=== PATIENT | male | born 1940 | race Caucasian/White ===

== ENCOUNTER → 2016-06-03 | Outpatient (CLI) | payer MEDICARE, BC ==
--- NOTE | 2016-06-03 11:36 | US ---
EXAMINATION TYPE: US venous doppler duplex LE LT DATE OF EXAM: 06/03/2016 10:07 AM COMPARISON: US 11/13/2015 CLINICAL HISTORY: US. History of DVT in the left leg, currently on blood thinners. Swelling is still present, but going down per patient. SIDE PERFORMED: Left VESSELS IMAGED: External Iliac Vein (EIV) Common Femoral Vein Deep Femoral Vein Greater Saphenous Vein * Femoral Vein Popliteal Vein Small Saphenous Vein * Proximal Calf Veins (* superficial vessels) Left Leg: Positive for DVT IMPRESSION: Left leg appears to have DVT due to only partial compression of the femoral vein high to popliteal low. Spoke to Kathy around 11:10 06/03/2016 about positive exam and she said to go ahead and send him home.
== END | disposition home or self-care (01) ==
LOC: RADUSWWP 10:05
PROVIDERS: ATTEND Family Medicine
DX: I80.292 Phlebitis and thrombophlebitis of other deep vessels of left lower extremity (principal)

== ENCOUNTER 2016-10-08 15:13 | Inpatient (IN) | payer MEDICARE, BC ==
[2016-10-08] MEDS ORDERED: NALOXONE 0.4 MG/ML 1 ML VIAL IV PRN (17:23)
[2016-10-08] MEDS ORDERED: ALBUTEROL NEBULIZED 2.5 MG/3 ML INHALATION PRN (17:30)
[2016-10-08] MEDS ORDERED: SODIUM CHLORIDE 0.9% 1,000 ML IV SCH (17:30)
[2016-10-08] MEDS ORDERED: WARFARIN 7.5 MG TAB PO SCH (18:00)
[2016-10-08] MEDS: CARVEDILOL 6.25 MG TAB PO SCH (18:03)
[2016-10-08 18:16] LABS: INR 4.5 (<1.1); Prothrombin Time 44.6 sec (9.0-12.0)
[2016-10-08 18:22] LABS: ALT 59 U/L (21-72); AST 46 U/L (17-59); Alkaline Phosphatase 33 U/L (38-126); Anion Gap 10 mmol/L; Blood Urea Nitrogen 45 mg/dL (9-20); Carbon Dioxide 18 mmol/L (22-30); Chloride 107 mmol/L (98-107); Glucose 97 mg/dL (74-99); Non-African American GFR(MDRD) 51 (>60 ml/min/1.73 sqM); Potassium 4.6 mmol/L (3.5-5.1); Sodium 135 mmol/L (137-145); Total Bilirubin 1.2 mg/dL (0.2-1.3)
[2016-10-08 18:25] LABS: CH 31.3; CHCM 34.6; HCT 54.9 % (39.0-53.0); HDW 2.41; HGB 18.2 gm/dL (13.0-17.5); MCH 30.3 pg (25.0-35.0); MCHC 33.2 g/dL (31.0-37.0); MCV 91.1 fL (80.0-100.0); Mean Platelet Volume 6.8; RBC 6.03 m/uL (4.30-5.90); RDW 15.3 % (11.5-15.5); WBC (Perox) 35.58
[2016-10-08 18:27] LABS: WBC 40.5 k/uL (3.8-10.6)
[2016-10-08] MEDS ORDERED: TAMSULOSIN 0.4 MG CAP.ER.24H PO SCH (19:00)
[2016-10-08 19:27] LABS: Add Differential Manual Differential
[2016-10-08] MEDS: MONTELUKAST 10 MG TAB PO SCH (19:40)
[2016-10-08 19:45] LABS: Nucleated Red Blood Cells 0 /100 WBC (0-0); Total Cells Counted 100
[2016-10-08 19:47] LABS: Manual Review Performed; RBC Morphology Normal
[2016-10-08] MEDS: AZELASTINE 137MCG/SPRAY EA NOSTRIL SCH (20:57)
[2016-10-08] MEDS ORDERED: ALPRAZolam 0.25 MG TAB PO SCH (21:00)
[2016-10-08] MEDS ORDERED: LORATADINE 10 MG TAB PO SCH (21:00)
[2016-10-08] MEDS ORDERED: METHYL SALICYLATE/MENTHOL CREAM 5 OZ TOPICAL SCH (22:30)
[2016-10-08] MEDS: IBUPROFEN 400 MG TAB PO SCH (22:45)
[2016-10-08 23:14] LABS: Appearance,Urine Clear (Clear); Bilirubin,Urine Negative (Negative); Glucose,Urine (UA) Negative (Negative); Ketones,Urine Negative (Negative); Leukocyte Esterase,Urine Negative (Negative); Nitrite,Urine Negative (Negative); PH, Urine 5.5 (5.0-8.0); Protein,Urine Negative (Negative); Specific Gravity,Urine 1.021 (1.001-1.035); UA Billing (MACRO vs. MICRO) CHEM; Urobilinogen,Urine <2.0 mg/dL (<2.0)
[2016-10-09 07:41] VITALS: BP 130/64; PULSE 87; RESP 16; TEMP 97.8
[2016-10-09] MEDS: IBUPROFEN 400 MG TAB PO SCH (08:20)
[2016-10-09] MEDS: AZELASTINE 137MCG/SPRAY EA NOSTRIL SCH (08:21)
[2016-10-09] MEDS: MONTELUKAST 10 MG TAB PO SCH (08:21)
[2016-10-09] MEDS: CARVEDILOL 6.25 MG TAB PO SCH (08:21)
--- NOTE | 2016-10-09 08:34 | XR ---
EXAMINATION TYPE: XR chest 2V DATE OF EXAM: 10/09/2016 6:59 AM COMPARISON: Prior chest x-ray November 13, 2015. Prior chest CT June 29, 2013 HISTORY: Leukocytosis. TECHNIQUE: Frontal and lateral views of the chest are obtained. FINDINGS: There is chronic parenchymal change without suspicious new focal air space opacity, pleura l effusion, or pneumothorax seen. The cardiac silhouette size is stable and upper limits of normal w ith atherosclerotic and ectatic thoracic aorta redemonstrated. The osseous structures are intact. IMPRESSION: No suspicious acute pulmonary process. No significant change from prior studies.
[2016-10-09] MEDS ORDERED: LISINOPRIL 10 MG TAB PO SCH (09:00)
[2016-10-09] MEDS ORDERED: FUROSEMIDE 40 MG TAB PO SCH (09:00)
[2016-10-09 09:35] LABS: INR 3.9 (<1.1)
[2016-10-09 09:53] LABS: ALT 47 U/L (21-72); AST 62 U/L (17-59); Alkaline Phosphatase <20 U/L (38-126); Anion Gap 9 mmol/L; Blood Urea Nitrogen 39 mg/dL (9-20); Calcium 8.4 mg/dL (8.4-10.2); Carbon Dioxide 17 mmol/L (22-30); Chloride 110 mmol/L (98-107); Glucose 79 mg/dL (74-99); Non-African American GFR(MDRD) >60 (>60 ml/min/1.73 sqM); Sodium 136 mmol/L (137-145); Total Bilirubin 2.2 mg/dL (0.2-1.3); Total Protein 6.1 g/dL (6.3-8.2)
[2016-10-09 09:54] LABS: Potassium 5.4 mmol/L (3.5-5.1)
[2016-10-09 10:01] LABS: CH 31.4; CHCM 33.6; HCT 54.1 % (39.0-53.0); HDW 2.29; HGB 17.8 gm/dL (13.0-17.5); MCH 31.1 pg (25.0-35.0); MCV 94.2 fL (80.0-100.0); Mean Platelet Volume 6.7; RBC 5.74 m/uL (4.30-5.90); RDW 15.5 % (11.5-15.5); WBC (Perox) 30.75
--- NOTE | 2016-10-09 11:21 | P.DS ---
Providers Date of admission: 10/08/16 15:15 Expected date of discharge: 10/09/16 Attending physician: Saedi Tapia Consults: 10/08/16 17:26 Consult Physician Urgent Consulting Provider: Ryder Hurst Consult Reason/Comments: leucocytosis Do you want consulting provider notified?: Yes Primary care physician: [facility] Course: 76-year-old male was a direct admission from Dr. Tapia's office the patient is being seen and noted to have an elevated white count the white count on admission was 40. Repeat white count 33 on October 09 patient states that about 7- 10 days ago he was given a steroid shot. Subsequently the patient was admitted and seen by Dr. Hurst who recommended the patient be discharged and he would see the patient in the outpatient setting. There was no cough fever or chills. Patient's chest x-ray showed no acute pulmonary process patient has a history of an irregular heart rhythm atrial fibrillation is on anticoagulation. INR on admission was 4.5. Coumadin was held repeat INR on the showed it to be 3.9. Patient was felt to be medically stable and appropriate proceed with a discharge to home. Patient was instructed to not resume Coumadin until seen in Dr. Tapia's office this coming Friday Have a pro time and INR drawn at Dr. Tapia's office on Appointment would be made for him to follow-up with Dr. Hurst in the office next week Impression discharge diagnoses Present on admission Coumadin coagulopathy INR 4.5 atrial fibrillation chronic persistent controlled ventricular response Present on admission leukocytosis The above dictated assessment and findings were discussed with dr tapia. Impression and the plan of care have been dictated as directed. Sarika Owusu nurse practitioner acting as a scribe for dr tapia Plan - Discharge Summary Discharge Medication List ALPRAZolam [Xanax] 0.25 mg PO HS 04/12/14 [History] Albuterol Sulfate [Proair Hfa] 2 puff INHALATION RT-Q6H PRN 04/12/14 [History] Azelastine HCl [Astepro] 1 spray EA NOSTRIL BID 04/12/14 [History] Fexofenadine HCl [Radha Allergy] 180 mg PO HS 04/12/14 [History] Furosemide [Lasix] 40 mg PO DAILY 04/12/14 [History] Lisinopril [Zestril] 10 mg PO DAILY 04/12/14 [History] Montelukast [Singulair] 10 mg PO BID 04/12/14 [History] Tamsulosin [Flomax] 0.4 mg PO DAILY@1900 04/12/14 [History] Spironolactone [Aldactone] 25 mg PO DAILY@1700 04/24/15 [History] Carvedilol [Coreg] 6.25 mg PO BID 11/13/15 [History] Ibuprofen [Advil] 400 mg PO TID@0800,1500,2200 11/13/15 [History] Warfarin [Coumadin] 3.75 mg PO DIRECTED 11/13/15 [History] Warfarin [Coumadin] 7.5 mg PO DIRECTED 11/13/15 [History] Menthol [Biofreeze] 1 applic TOPICAL DAILY@2230 10/08/16 [History] Follow up Appointment(s)/Referral(s): Saeid Tapia MD [Primary Care Provider] - 10/11/16 Ryder Hurst MD [STAFF PHYSICIAN] - 1 Week Activity/Diet/Wound Care/Special Instructions: Do not restart the Coumadin until seen in Dr. Tapia's office this FridayOctober 11 To have a pro time and INR lab draw on the 10 of October Discharge Disposition: HOME SELF-CARE
[2016-10-09 11:22] LABS: Add Differential Manual Differential
[2016-10-09 12:04] LABS: Nucleated Red Blood Cells 0 /100 WBC (0-0); Total Cells Counted 200
[2016-10-09] MEDS ORDERED: SPIRONOLACTONE 25 MG TAB PO SCH (17:00)
--- NOTE | 2016-10-09 17:08 | P.CONS ---
History of Present Illness - Reason for Consult Consult date: 10/09/16 leukocytosis, ALC elevated Requesting physician: Saeid Yang - Chief Complaint abnormal WBC - History of Present Illness Mr. Steele is a very pleasant male pt of Dr. Yang who was sent to [facility] ER when he was found to have a significantly elevated WBC/ALC and mildly elevate Hgb/Hct on routine lab work. Pt denies any history of elevated blood counts, he denies fevers, sweats, he was treated with a steroid and antibiotic injection for URI about 1-2 weeks ago, he denies any other recent illnesses, no dysphagia, changes in appetite, wt. loss, chest pain, palpitations, indigestion , nausea, vomiting, changes in bowel or bladder habits, no acute changes in energy levels or unrealistic fatigue. He feels well. Review of Systems All systems: negative Constitutional: Reports as per HPI Past Medical History Past Medical History: Atrial Fibrillation, Asthma, Heart Failure, Deep Vein Thrombosis (DVT), Hearing Disorder / Deafness, Hypertension, Myocardial Infarction (SD), Osteoarthritis (OA), Prostate Disorder Additional Past Medical History / Comment(s): cholecystitis. Aortic regurgitation, cardiomyopathy, per old medical record stress test showed inferior wall SD, BPH, hypoglycemia, pt states PCP has told him he does not have COPD, arthiritis, chronic low back pain, [place] bilaterally, sinus problems, hayfever. "cervical stenosis", gout lt foot Last Myocardial Infarction Date:: UNKNOWN History of Any Multi-Drug Resistant Organisms: None Reported Past Surgical History: Cholecystectomy, Heart Catheterization, Joint Replacement , Tonsillectomy Additional Past Surgical History / Comment(s): LEFT KNEE-TOTAL, cataract removal bilaterally, colonoscopies-normal, back injections with disc disolvement , BRETT. tooth extraction Past Anesthesia/Blood Transfusion Reactions: No Reported Reaction Past Psychological History: Anxiety, Depression Additional Psychological History / Comment(s): Pt states he is on medication for anxiety and to help sleep at night,ITS working well for him.DENIES HAVING ANY DEPRESSION at time of admit but states occ has some mild depression. He resides with his spouse skip in a single level home that has total of 2 steps to enter home. He is independent. He uses no assistive device. He drives. sereved in the [employer] when younger. 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 He rarely has an alcoholic beverage. Past Drug Use History: None Reported - Past Family History Daughter(s) Family Medical History: Cancer Father Family Medical History: Neurologic Disorder Additional Family Medical History / Comment(s): Father had parkinson's disease. He in his 70's. Mother Family Medical History: Asthma, Myocardial Infarction (SD), Rheumatoid Arthritis (RA) Additional Family Medical History / Comment(s): Mother of a SD in her 70' s. She also had osteoporosis. Medications and Allergies Home Medications Medication Instructions Recorded Confirmed Type ALPRAZolam [Xanax] 0.25 mg PO HS 04/12/14 10/08/16 History Albuterol Sulfate [Proair Hfa] 2 puff INHALATION RT-Q6H PRN 04/12/14 10/08/16 History Azelastine HCl [Astepro] 1 spray EA NOSTRIL BID 04/12/14 10/08/16 History Fexofenadine HCl [Radha Allergy] 180 mg PO HS 04/12/14 10/08/16 History Furosemide [Lasix] 40 mg PO DAILY 04/12/14 10/08/16 History Lisinopril [Zestril] 10 mg PO DAILY 04/12/14 10/08/16 History Montelukast [Singulair] 10 mg PO BID 04/12/14 10/08/16 History Tamsulosin [Flomax] 0.4 mg PO DAILY@1900 04/12/14 10/08/16 History Spironolactone [Aldactone] 25 mg PO DAILY@1700 04/24/15 10/08/16 History Carvedilol [Coreg] 6.25 mg PO BID 11/13/15 10/08/16 History Ibuprofen [Advil] 400 mg PO TID@0800,1500,2200 11/13/15 10/08/16 History Warfarin [Coumadin] 3.75 mg PO DIRECTED 11/13/15 10/08/16 History Warfarin [Coumadin] 7.5 mg PO DIRECTED 11/13/15 10/08/16 History Menthol [Biofreeze] 1 applic TOPICAL DAILY@2230 10/08/16 10/08/16 History Allergies Allergy/AdvReac Type Severity Reaction Status Date / Time diazepam [From Valium] AdvReac Unknown Verified 11/13/15 15:37 Physical Exam Vitals: Vital Signs Temp Pulse Resp BP Pulse Ox 10/09/16 08:00 87 16 10/09/16 07:00 97.8 F 87 16 130/64 98 10/09/16 00:00 100 18 10/08/16 22:40 98.2 F 100 18 125/66 96 10/08/16 16:41 97.2 F L 95 16 130/75 97 10/08/16 16:23 16 Intake and Output 10/08/16 10/09/16 10/09/16 22:59 06:59 14:59 Intake Total 400 450 Balance 400 450 Intake: Oral 400 450 Other: Voiding Method Toilet Toilet Toilet # Voids 1 Weight 98.883 kg - Constitutional General appearance: cooperative, no acute distress, obese - EENT Eyes: anicteric sclerae, EOMI, PERRLA, normal appearance ENT: hearing grossly normal, normal oropharynx - Neck Neck: no lymphadenopathy - Respiratory Respiratory: bilateral: CTA - Cardiovascular Heart sounds: normal: S1, S2 leg Peripheral Edema: bilateral: None - Gastrointestinal General gastrointestinal: no absent bowel sounds, no decreased bowel sounds, no distended, no hepatomegaly, no hyperactive bowel sounds, normal bowel sounds, no organomegaly, no rigid, no scaphoid, soft, no splenomegaly, no tenderness, no umbilical hernia, no ventral hernia - Integumentary Integumentary: normal - Neurologic Neurologic: CNII-XII intact - Musculoskeletal Musculoskeletal: strength equal bilaterally - Psychiatric Psychiatric: A&O x's 3, appropriate affect, intact judgment & insight Results CBC & Chem 7: 10/09/16 08:00 10/09/16 08:00 Labs: Abnormal Lab Results - Last 24 Hours (Table) 10/08/16 10/08/16 10/08/16 Range/Units 17:50 17:50 17:50 WBC 40.5 H* (3.8-10.6) k/uL RBC 6.03 H (4.30-5.90) m/uL Hgb 18.2 H (13.0-17.5) gm/dL Hct 54.9 H (39.0-53.0) % Plt Count (150-450) k/uL Lymphocytes # (Manual) 32.8 H (1.0-4.8) k/uL Monocytes # (Manual) 1.2 H (0-1.0) k/uL PT 44.6 H (9.0-12.0) sec Sodium 135 L (137-145) mmol/L Potassium (3.5-5.1) mmol/L Chloride (98-107) mmol/L Carbon Dioxide 18 L (22-30) mmol/L BUN 45 H (9-20) mg/dL Creatinine 1.35 H (0.66-1.25) mg/dL Total Bilirubin (0.2-1.3) mg/dL AST (17-59) U/L Alkaline Phosphatase 33 L (38-126) U/L Total Protein 6.0 L (6.3-8.2) g/dL Albumin (3.5-5.0) g/dL 10/09/16 10/09/16 10/09/16 Range/Units 08:00 08:00 08:00 WBC 33.0 H* (3.8-10.6) k/uL RBC (4.30-5.90) m/uL Hgb 17.8 H (13.0-17.5) gm/dL Hct 54.1 H (39.0-53.0) % Plt Count 143 L (150-450) k/uL Lymphocytes # (Manual) 27.6 H (1.0-4.8) k/uL Monocytes # (Manual) (0-1.0) k/uL PT 38.0 H (9.0-12.0) sec Sodium 136 L (137-145) mmol/L Potassium 5.4 H (3.5-5.1) mmol/L Chloride 110 H (98-107) mmol/L Carbon Dioxide 17 L (22-30) mmol/L BUN 39 H (9-20) mg/dL Creatinine (0.66-1.25) mg/dL Total Bilirubin 2.2 H (0.2-1.3) mg/dL AST 62 H (17-59) U/L Alkaline Phosphatase <20 L (38-126) U/L Total Protein 6.1 L (6.3-8.2) g/dL Albumin 3.4 L (3.5-5.0) g/dL Microbiology - Last 24 Hours (Table) 10/08/16 22:45 Urine Culture - Preliminary Urine,Clean Catch Chest x-ray: report reviewed Assessment and Plan (1) Lymphocytosis Status: Acute (2) Leukocytosis Status: Acute Plan: Flow cytometry labs have been requested for evaluation, findings suggestive of a chronic lymphocytic leukemia, no evidence at this time to suggest acute condition, all other pt other labs are WNL, pt is asymptomatic. Once requested labs have been drawn pt is ok from Hem/Onc standpoint to be discharged to home. Office will contact pt with follow up appt once labs have returned. Case discussed with Attending Physician. Polycythemia will be worked up in office if persistent.
[2016-10-09] MEDS ORDERED: WARFARIN 7.5 MG TAB PO SCH (18:00)
[2016-10-10] MEDS ORDERED: WARFARIN 7.5 MG TAB PO SCH (18:00)
== END 2016-10-09 11:52 | disposition home or self-care (01) | DRG 815 ==
LOC: 5ONC 15:15
PROVIDERS: ADMIT Family Medicine; ATTEND Family Medicine
DX: D72.820 Lymphocytosis (symptomatic) (principal); I42.9 Cardiomyopathy, unspecified; I11.0 Hypertensive heart disease with heart failure; I50.9 Heart failure, unspecified; I35.1 Nonrheumatic aortic (valve) insufficiency; I25.2 Old myocardial infarction; I48.2 Chronic atrial fibrillation; J45.909 Unspecified asthma, uncomplicated; M10.9 Gout, unspecified; N40.0 Benign prostatic hyperplasia without lower urinary tract symptoms; R79.1 Abnormal coagulation profile; T45.515A Adverse effect of anticoagulants, initial encounter; F32.9 Major depressive disorder, single episode, unspecified; F41.9 Anxiety disorder, unspecified; M19.90 Unspecified osteoarthritis, unspecified site; M48.02 Spinal stenosis, cervical region; H91.93 Unspecified hearing loss, bilateral; G89.29 Other chronic pain; M54.5 Low back pain; Z79.01 Long term (current) use of anticoagulants; Z79.899 Other long term (current) drug therapy; Z87.891 Personal history of nicotine dependence; Z96.652 Presence of left artificial knee joint; Z82.49 Family history of ischemic heart disease and other diseases of the circulatory system
CPT/HCPCS: 71020; 80053; 81003; 85025; 85610; 87040; 87086; 88184; 88185

== ENCOUNTER → 2018-09-22 | Outpatient (CLI) | payer MEDICARE, BC ==
--- NOTE | 2018-09-24 03:59 | CT ---
EXAMINATION TYPE: CT abdomen pelvis w con DATE OF EXAM: 09/22/2018 COMPARISON: NONE HISTORY: 78-year-old male with abdominal cramping x 2 weeks. TECHNIQUE: Contiguous axial scanning of the abdomen and pelvis following administration of 100 ml Iso bhavani 300 IV contrast. Delayed images through the kidneys and coronal/sagittal reconstructions perform ed. CT DLP: 1439.5 mGycm Automated exposure control for dose reduction was used. FINDINGS: Heart borderline in size with trace anterior pericardial fluid. Tortuous descending thoracic aorta with mild aneurysm of the lower portion at 3.3 cm. Mild fusiform e ctasia infrarenal abdominal aorta at 2.6 cm with scattered mild atherosclerotic calcifications throug hout the aortoiliac system. Ectatic right and left common iliac arteries measuring up to 1.8 cm. Ther e is a common trunk of the celiac axis and SMA. Tiny hiatal hernia. 1.7 x 0.9 cm nodularity at the medial left base suspected pleural parenchymal scarring but should be reassessed at follow-up. Segments 6 and 7 of the posterior right liver lobe appear somewhat small possibly due to congenital v ariation. No focal liver lesion or biliary ductal dilatation. Portal venous system is patent. Gallbladder not identified, likely surgically absent. Adrenal glands, spleen, and pancreas appear within normal limits. A few scattered tiny subcentimeter hypodensities within both kidneys are too small for accurate CT ch aracterization, likely cysts. There is a 5.5 cm cyst laterally in the left kidney. Symmetric uptake a nd excretion of contrast from both kidneys. No dilated small bowel, free fluid, or free air. No mesenteric or retroperitoneal lymphadenopathy. Normal appendix. Mild stool burden. Sigmoid diverticulosis with mild pericolonic inflammatory fat str anding along the proximal sigmoid and adjacent localized extraluminal air collection measuring 5.4 x 1.9 cm. Prostate gland measures 7.7 cm wide. No abnormal fluid collection in the pelvis or pelvic lymphadenop athy. Bones: Mild degenerative changes at the hips. Moderately advanced degenerative disc disease and facet arthropathy in the lumbar spine. IMPRESSION: 1. SIGMOID DIVERTICULOSIS WITH LOCALIZED ACUTE DIVERTICULITIS ALONG THE PROXIMAL SIGMOID. THE ACUTE D IVERTICULITIS IS COMPLICATED BY A LOCALIZED PERFORATION AND A 5.4 X 1.9 CM ADJACENT EXTRALUMINAL FREE AIR POCKET. NO ABSCESS FORMATION OR FREE FLUID AT THIS TIME. 2. PROSTATOMEGALY (7.7 CM WIDE). CORRELATE WITH PATIENT'S SYMPTOMS, PSA VALUES, AND PHYSICAL EXAM FIN DINGS. 3. 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 THE RIGHT AND LEFT COMMO N ILIAC ARTERIES ARE ALSO ECTATIC AT 1.8 CM EACH. 4. 1.7 X 0.9 CM NODULARITY AT THE MEDIAL LEFT BASE SUSPECTED TO REPRESENT PLEURAL-PARENCHYMAL SCARRIN G. THREE-MONTH FOLLOW-UP CONTRAST ENHANCED CT CHEST TO REASSESS. A [place] critical message alert has been initiated for Saeid Yang MD via the [employer] Critical Results System on 09/24/2018 3:57 AM. This message alert has been sent to Saeid Yang MD v ia the preferences provided by the clinician for the receipt of Radiology Critical Findings. Message ID [id number].
== END | disposition home or self-care (01) ==
LOC: RADCTMAIN 13:32
PROVIDERS: ATTEND Family Medicine
DX: K57.30 Diverticulosis of large intestine without perforation or abscess without bleeding (principal); K57.32 Diverticulitis of large intestine without perforation or abscess without bleeding; N40.0 Benign prostatic hyperplasia without lower urinary tract symptoms; I71.2 Thoracic aortic aneurysm, without rupture; I77.1 Stricture of artery; I77.89 Other specified disorders of arteries and arterioles
CPT/HCPCS: 82565; 84520; 74177; 36415; Q9967 ×2

== ENCOUNTER → 2020-02-02 | Outpatient (CLI) | payer MEDICARE, BC ==
--- NOTE | 2020-02-02 16:02 | CT ---
EXAMINATION TYPE: CT shoulder LT wo con DATE OF EXAM: 02/02/2020 COMPARISON: None HISTORY: left shoulder pain. no injury. CT DLP: 518.3 mGycm Automated exposure control for dose reduction was used. FINDINGS: There is complete loss of joint space of the glenohumeral joint. Likely is cartilaginous loss. Cystic changes involving the glenoid likely in the basis of a degenerative geode rather than bone cyst. No erosive changes. Mild hypertrophic change of the AC joint. There is no evidence of acute fracture or dislocation. Visu alized osseous structures intact. Soft tissue tissue windows demonstrate no definite soft tissue abnormality. IMPRESSION: 1. SEVERE GLENOHUMERAL JOINT ARTHROPATHY WITH COMPLETE LOSS OF JOINT SPACE 2. INCIDENTAL NOTE IS MADE OF A SUBPLEURAL PULMONARY NODULE LEFT UPPER LOBE MEASURING 4 MM TOO SMALL TO CHARACTERIZE. MULTIPLE ADDITIONAL 2 MM NODULES ALSO SEEN WITHIN THE LEFT LUNG WELL A CALCIFI ED GRANULOMA. CONSIDER DEDICATED CT SCAN OF THE CHEST.
== END | disposition home or self-care (01) ==
LOC: RADCTMAIN 15:10
PROVIDERS: ATTEND Family Medicine
DX: M12.812 Other specific arthropathies, not elsewhere classified, left shoulder (principal)

== ENCOUNTER → 2021-05-15 | Outpatient (CLI) | payer MEDICARE, BC ==
--- NOTE | 2021-05-16 10:02 | US ---
EXAMINATION TYPE: US kidneys/renal and bladder DATE OF EXAM: 05/15/2021 COMPARISON: NONE CLINICAL HISTORY: 81-year-old male R94.4 Abnormal Kidney Function Study. Sonography note: Elderly male with known CKD, and cysts on CT Technique: Multiple sonographic images of the kidneys and bladder are obtained. FINDINGS: EXAM MEASUREMENTS: Right Kidney: 12.8 x 4.8 x 6.7cm Left Kidney: 9.2 x 5.0 x 5.2cm Renal cortical thinning suggesting chronic medical renal disease. Right Kidney: No masses or hydronephrosis seen Left Kidney: 4.2cm mid pole cyst. No hydronephrosis. Bladder: wnl Bilateral Jets seen: Only the left IMPRESSION: Bilateral chronic medical renal disease. No hydronephrosis. A benign 4.2 cm left renal cyst.
== END | disposition home or self-care (01) ==
LOC: RADUSWWP 15:19
PROVIDERS: ATTEND Internal Medicine Hematology & Oncology
DX: R94.4 Abnormal results of kidney function studies (principal); N28.1 Cyst of kidney, acquired
CPT/HCPCS: 76770

== ENCOUNTER 2022-06-10 15:02 | Inpatient (IN) | payer MEDICARE, BC ==
[2022-06-10] MEDS ORDERED: MORPHINE SULFATE 4 MG/ML SYRINGE IVP STA ×2 (17:18→19:45)
--- NOTE | 2022-06-10 18:09 | CT ---
EXAMINATION TYPE: CT brain susanna rodriguez con DATE OF EXAM: 06/10/2022 COMPARISON: None HISTORY: Fall. CT DLP: 1575.9 mGycm Automated exposure control for dose reduction was used. Images of the brain and cervical spine obtained with no contrast. The cervical vertebra have normal alignment. There is degenerative disc space narrowing from C3 to T1 with spurring of the endplates. Posterior elements are intact. There is multilevel hypertrophic cerv ical facet arthropathy. There is right-sided uncovertebral spurring and neural foraminal impingement at multiple levels of the mid and lower cervical spine. There is diffuse cerebral cortical atrophy. There is no mass effect nor midline shift. No sign of int racranial hemorrhage. Calvarium is intact. Skull base is intact. IMPRESSION: Cerebral atrophy. No acute intracranial abnormality. Multilevel cervical spondylotic changes. No fracture seen.
--- NOTE | 2022-06-10 18:10 | XR ---
EXAMINATION TYPE: XR chest 1V portable DATE OF EXAM: 06/10/2022 COMPARISON: 10/09/2016 HISTORY: Fall. Pain TECHNIQUE: Single view FINDINGS: Heart is slightly enlarged. No heart failure. There are chest leads. Bony thorax is intact. IMPRESSION: Mild cardiomegaly. No acute lung disease. Heart appears increased compared to old exam.
--- NOTE | 2022-06-10 18:36 | XR ---
EXAMINATION TYPE: XR shoulder complete RT DATE OF EXAM: 06/10/2022 COMPARISON: NONE HISTORY: Shoulder pain TECHNIQUE: 3 views FINDINGS: There is an acute impacted right humeral neck fracture. No dislocation. There is narrowing of the glenohumeral joint space. There is 1.8 cm impaction. IMPRESSION: Acute impacted humeral neck fracture.
[2022-06-10] MEDS ORDERED: ALPRAZolam 0.5 MG TAB PO STA (19:45)
[2022-06-10] MEDS ORDERED: NALOXONE 0.4 MG/ML 1 ML VIAL IV PRN (19:50)
--- NOTE | 2022-06-10 19:50 | ED ---
General Adult HPI - General Chief complaint: Fall Stated complaint: Fall Time Seen by Provider: 06/10/22 16:04 Source: patient Mode of arrival: ambulatory Limitations: no limitations - History of Present Illness Initial comments: This is an 82-year-old male with a significant past medical history including recent admission and discharge from [facility] inpatient rehab facility yesterday for right lower extremity injury and skin grafting. The patient was at [facility] for approximately 3 months due to debility and did do discharged home yesterday. The patient then stated when he was at home he was getting up from his recliner with his cane when he fell on the right shoulder. The patient did hit his head but did not lose consciousness. The patient had complaints of pain in the right shoulder without any other complaints anywhere else. The patient was resting in bed comfortably without any further acute pain or distress noted. - Related Data Home Medications Medication Instructions Recorded Confirmed ALPRAZolam [Xanax] 0.25 mg PO TID PRN 04/12/14 06/10/22 Furosemide [Lasix] 40 mg PO DAILY@89904/12/14 06/10/22 Montelukast [Singulair] 10 mg PO DAILY@0904/12/14 06/10/22 Tamsulosin [Flomax] 0.4 mg PO DAILY@89904/12/14 06/10/22 Spironolactone [Aldactone] 25 mg PO DAILY@0904/24/15 06/10/22 Acetaminophen [Tylenol] 650 mg PO Q4H PRN 06/10/22 06/10/22 Amiodarone HCl [Pacerone] 100 mg PO DAILY@89906/10/22 06/10/22 Apixaban [Eliquis] 2.5 mg PO DAILY@89906/10/22 06/10/22 Budesonide/Glycopyr/Formoterol 2 puff INHALATION RT-BID@0900,1700 06/10/22 06/10/22 [Breztri Aerosphere Inhaler] PRN HYDROcodone/APAP 7.5-325MG [[place] 1 tab PO Q6H PRN 06/10/22 06/10/22 7.5-325] Ipratropium-Albuterol Nebulize 3 ml INHALATION RT-QID@09,12,17,21 06/10/22 06/10/22 [Duoneb 0.5 mg-3 mg/3 ml Soln] Loratadine [Claritin] 10 mg PO DAILY@0900 06/10/22 06/10/22 Metoprolol Tartrate 25 mg PO BID@0900,1700 06/10/22 06/10/22 Multivitamins, Thera [Multivitamin 1 tab PO DAILY@0900 06/10/22 06/10/22 (formulary)] Pantoprazole Sodium [Protonix] 40 mg PO DAILY@0900 06/10/22 06/10/22 Sennosides/Docusate Sodium [Senna 1 tab PO BID@0900,1700 PRN 06/10/22 06/10/22 Plus 8.6-50 mg Tablet] fluvoxaMINE MALEATE [Luvox] 100 mg PO DAILY@0900 06/10/22 06/10/22 tadalafiL [Cialis] 5 mg PO DAILY@0900 06/10/22 06/10/22 Allergies Allergy/AdvReac Type Severity Reaction Status Date / Time banana Allergy Unknown Verified 06/10/22 20:47 diazepam [From Valium] AdvReac Unknown Verified 06/10/22 20:47 Review of Systems ROS Statement: Those systems with pertinent positive or pertinent negative responses have been documented in the HPI. ROS Other: All systems not noted in ROS Statement are negative. Past Medical History Past Medical History: Atrial Fibrillation, Asthma, Heart Failure, Deep Vein Thrombosis (DVT), Hearing Disorder / Deafness, Hypertension, Myocardial Infarction ([place]), Osteoarthritis (OA), Prostate Disorder Additional Past Medical History / Comment(s): cholecystitis. Aortic regurgitation, cardiomyopathy, per old medical record stress test showed inferior wall [place], BPH, hypoglycemia, pt states PCP has told him he does not have COPD, arthiritis, chronic low back pain, [place] bilaterally, sinus problems, hayfever. "cervical stenosis", gout lt foot Last Myocardial Infarction Date:: UNKNOWN History of Any Multi-Drug Resistant Organisms: None Reported Past Surgical History: Cholecystectomy, Heart Catheterization, Joint Replacement, Tonsillectomy Additional Past Surgical History / Comment(s): LEFT KNEE-TOTAL, cataract removal bilaterally, colonoscopies-normal, back injections with disc disolvement, BRETT. tooth extraction Past Anesthesia/Blood Transfusion Reactions: No Reported Reaction Past Psychological History: Anxiety, Depression Past Alcohol Use History: Rare Past Drug Use History: None Reported - Past Family History Daughter(s) Family Medical History: Cancer Father Family Medical History: Neurologic Disorder Additional Family Medical History / Comment(s): Father had parkinson's disease. He in his 70's. Mother Family Medical History: Asthma, Myocardial Infarction ([place]), Rheumatoid Arthritis (RA) Additional Family Medical History / Comment(s): Mother of a AL in her 70's. She also had osteoporosis. General Exam Limitations: no limitations General appearance: alert, in distress (In pain and distress secondary to right shoulder pain.) Head exam: Present: atraumatic, normocephalic, normal inspection Eye exam: Present: normal appearance, PERRL Pupils: Present: normal accommodation ENT exam: Present: normal exam, normal oropharynx, mucous membranes moist Neck exam: Present: normal inspection, full ROM Respiratory exam: Present: normal lung sounds bilaterally Cardiovascular Exam: Present: regular rate, normal rhythm, normal heart sounds GI/Abdominal exam: Present: soft, normal bowel sounds Extremities exam: Present: normal inspection, full ROM, normal capillary refill Back exam: Present: normal inspection, full ROM Neurological exam: Present: alert, oriented X3, CN II-XII intact Psychiatric exam: Present: normal affect, normal mood Skin exam: Present: warm, dry Course Vital Signs 06/10/22 06/10/22 06/10/22 16:30 17:46 19:40 Pulse Rate 76 97 105 H Respiratory 18 18 20 Rate Blood Pressure 124/57 138/64 137/81 O2 Sat by Pulse 100 100 99 Oximetry Medical Decision Making - Medical Decision Making Was pt. sent in by a medical professional or institution (, PA, INCIDENT RESPONSE COORDINATOR, urgent care, hospital, or snf...) When possible be specific @ -No Did you speak to anyone other than the patient for history (EMS, parent, family, police, friend...)? What history was obtained from this source @ -Yes, patient's Did you review nursing and triage notes (agree or disagree)? Why? @ -I reviewed and agree with nursing and triage notes Were old charts reviewed (outside hosp., previous admission, EMS record, old EKG, old radiological studies, urgent care reports/EKG's, snf records)? Report findings @ -No old charts were reviewed Differential Diagnosis (chest pain, altered mental status, abdominal pain women, abdominal pain men, vaginal bleeding, weakness, fever, dyspnea, syncope, headache, dizziness, GI bleed, back pain, seizure, CVA, palpatations, mental health)? @ -Right shoulder dislocation, right humeral fracture EKG interpreted by me (3pts min.). @ -None X-rays interpreted by me (1pt min.). @ -Chest x-ray was obtained and was interpreted by myself showing no acute process. Right shoulder x-ray was obtained and reviewed by myself and showed an acute impacted humeral neck fracture. CT interpreted by me (1pt min.). @ -CT of the head and neck was obtained and was interpreted by myself showing no acute process. U/S interpreted by me (1pt. min.). @ -None done What testing was considered but not performed or refused? (CT, X-rays, U/S, labs)? Why? @ -None What meds were considered but not given or refused? Why? @ -None Did you discuss the management of the patient with other professionals (professionals i.e. , PA, INCIDENT RESPONSE COORDINATOR, lab, RT, psych nurse, social service worker, weft straightener, teacher, restoration officer, manager of case)? Give summary @ -Yes, admitting physician Was smoking cessation discussed for >3mins.? @ -No Was critical care preformed (if so, how long)? @ -No Were there social determinants of health that impacted care today? How? (Homelessness, low income, unemployed, alcoholism, drug addiction, transportation, low edu. Level, literacy, decrease access to med. care, half-way, rehab)? @ -No Was there de-escalation of care discussed even if they declined (Discuss DNR or withdrawal of care, Hospice)? DNR status @ -No What co-morbidities impacted this encounter? (DM, HTN, Smoking, COPD, CAD, Cancer, CVA, ARF, Chemo, Hep., AIDS, mental health diagnosis, sleep apnea, morbid obesity)? @ -Chronic debility, multiple past medical history including diabetes and hypertension. Was patient admitted / discharged? Hospital course, mention meds given and route, prescriptions, significant lab abnormalities, going to OR and other pertinent info. @ -The patient was seen and evaluated emergency department. Physical exam, the patient was stating that he was in pain secondary to the right shoulder. Vital signs were stable. Workup showed a acute, impacted right humeral head fracture. The patient was told of this as was his . The patient was having difficulties with ambulation throughout the home over the last 1 day and did state that he was using his right arm to do so. As the patient was unable to place weight on the left arm and did have weakness, both the patient and did not have any resources to have the patient discharged home. The was unable to care for the patient home with this and therefore the patient was placed in a sling and the primary care physician was contacted and did accept the patient for admission for evaluation by physical therapy and occupational therapy. Orthopedics was placed in consult per the admitting physician's request. The patient and were told of this plan and was agreeable. The patient was placed observation in stable condition. Undiagnosed new problem with uncertain prognosis? @ -No Drug Therapy requiring intensive monitoring for toxicity (Heparin, Nitro, Insulin, Cardizem)? @ -No Were any procedures done? @ -No Diagnosis/symptom? @ -Right humeral head fracture with debility Acute, or Chronic, or Acute on Chronic? @ -Acute Uncomplicated (without systemic symptoms) or Complicated (systemic symptoms)? @ -Complicated Side effects of treatment? @ -No Exacerbation, Progression, or Severe Exacerbation? @ -No Poses a threat to life or bodily function? How? (Chest pain, [place], AL, pneumonia, PE, COPD, DKA, ARF, appy, cholecystitis, CVA, Diverticulitis, Homicidal, Suicidal, threat to staff... and all critical care pts) @ -No Disposition Clinical Impression: Fall, Right humeral fracture Disposition: ADMITTED IP TO THIS [facility] Condition: Stable Is patient prescribed a controlled substance at d/c from ED?: No Time of Disposition: 19:00 Decision to Admit Reason: Admit from EC Decision Date: 06/10/22 Decision Time: 19:00
[2022-06-10] MEDS: HYDROmorphone 1 MG/ML 1 ML SYRINGE IVP PRN (22:44)
[2022-06-10] MEDS ORDERED: HYDROcodone/APAP 7.5-325MG 1 EACH TAB PO PRN (23:00)
--- NOTE | 2022-06-11 01:28 | HP ---
HISTORY AND PHYSICAL HISTORY OF PRESENT ILLNESS: An 82-year-old white male recently just got discharged from [facility] a day or 2 ago, was walking around the house all day with his walker. Apparently, he had fallen and his only good shoulder fracture in the right arm. He is unable to use both arms and have to go back to the [facility]. His cannot take care of him at home. He is in 10/10 pain. HOME MEDICINES: Coumadin 7.5 and 3.75 alternating, Coreg 6.25 b.i.d., Lasix 40 daily, Singulair 10 mg daily, Flomax 0.4 mg daily, Zestril 10 mg daily, Aldactone 25 daily, ProAir HFA 2 puffs p.r.n., Astepro daily, Xanax 0.25 nightly. He is supposed to be on Breztri inhaler 2 puffs b.i.d. and Luvox 100 mg bi.d. PAST MEDICAL HISTORY: Atrial fibrillation, asthma, heart failure, DVT, hypertension, myocardial infarction, osteoarthritis, prostate disorder, recently COVID positive, aortic regurg, cardiomyopathy, BPH, diastolic heart failure, cervical stenosis, severe rotator cuff tears on the left shoulder. Anxiety, depression. PAST SURGICAL HISTORY: Cholecystectomy, heart catheterization, joint replacement, tonsillectomy. PHYSICAL EXAMINATION: VITAL SIGNS: Blood pressure is 120 to 130s over 60s to 70s, pulse is 74 to 100, respiratory rate 16 to 20, O2 is 99% to 100% on room air. CARDIOVASCULAR: S1, S2. LUNGS: Transmitted upper airway sounds. HEMATOLOGY: Negative Homans. PSYCH: Fair mood and affect. MUSCULOSKELETAL: Right shoulder, decreased range of motion. IMPRESSION: Right humeral fracture, frequent falls, atrial fibrillation, coronary artery disease, atrial fibrillation, diastolic heart failure, chronic obstructive pulmonary disease, aortic stenosis, pulmonary fibrosis. PROGNOSIS: Extremely guarded. Orthopedic consult, PT/OT. Possibly send him back to rehab center. cannot take care of him. MMODL / IJN: [id number] /
[2022-06-11] MEDS: HYDROmorphone 1 MG/ML 1 ML SYRINGE IVP PRN ×3 (03:52→18:01)
[2022-06-11] MEDS: SPIRONOLACTONE 25 MG TAB PO SCH (08:27)
[2022-06-11] MEDS: APIXABAN 2.5 MG TABLET PO SCH (08:27)
[2022-06-11] MEDS: PANTOPRAZOLE 40 MG TABLET PO SCH (08:27)
[2022-06-11] MEDS: MULTIVITAMINS, THERA 1 EACH TAB PO SCH (08:27)
[2022-06-11] MEDS: FUROSEMIDE 40 MG TAB PO SCH (08:27)
[2022-06-11] MEDS: METOPROLOL TARTRATE 25 MG TAB PO SCH ×2 (08:27→15:39)
[2022-06-11] MEDS: TAMSULOSIN 0.4 MG CAP.ER.24H PO SCH (08:27)
[2022-06-11] MEDS: MONTELUKAST 10 MG TAB PO SCH (08:27)
[2022-06-11] MEDS: LORATADINE 10 MG TAB PO SCH (08:27)
[2022-06-11] MEDS: NON FORMULARY DRUG (Tadalafil [Cialis] 5 MG Tablet) PO SCH (08:29)
[2022-06-11] MEDS: AMIODARONE 100 MG TAB PO SCH (08:32)
[2022-06-11 08:51] LABS: Basophils # (A) 0.05 X 10*3/uL (0.00-0.10); Basophils % (A) 0.5 %; Eosinophils # (A) 0.04 X 10*3/uL (0.04-0.35); Eosinophils % (A) 0.4 %; HCT 36.1 % (39.6-50.0); HGB 11.3 g/dL (13.0-17.0); Immature Grans, Automated 0.5 %; Lymphocytes # (A) 2.55 X 10*3/uL (0.90-5.00); Lymphocytes % (A) 27.5 %; MCH 29.5 pg (27.0-32.0); MCHC 31.3 g/dL (32.0-37.0); MCV 94.3 fL (80.0-97.0); Mean Platelet Volume 9.6 fL (9.5-12.2); Monocytes # (A) 0.86 X 10*3/uL (0.20-1.00); Monocytes % (A) 9.3 %; NRBC Per 100 WBC 0 /100 WBCS (0.0-0.0); Neutrophils # (A) 5.73 X 10*3/uL (1.80-7.70); Neutrophils % (A) 61.8 %; Platelet Count 217 X 10*3/uL (140-440); RBC 3.83 X 10*6/uL (4.40-5.60); RDW 15.1 % (11.5-14.5); WBC 9.28 X 10*3/uL (4.50-10.00)
[2022-06-11] MEDS ORDERED: SENNOSIDES-DOCUSATE SODIUM 1 EACH TAB PO PRN (09:00)
[2022-06-11 09:16] LABS: INR 1.1 (0.90-1.11); Prothrombin Time 12.4 sec (9.9-11.9)
--- NOTE | 2022-06-11 09:36 | P.CNOR ---
History of Present Illness - [facility] Consult date: 06/11/22 Requesting physician: Saeid Yang Consult reason: fracture (Right proximal humerus fracture) History of present illness: The patient is an 82-year-old male with a extensive medical history, who presented to emergency department yesterday after sustaining a fall at home. The patient was discharged from [facility] a [facility] days ago. He states he was getting out of a recliner chair and fell. The patient did hit his head and had immediate right arm pain. On x-rays in the emergency department, a proximal humerus fracture was found. Head CT was negative for bleed or fracture. Patient was admitted to medicine for probable rehab placement again. Orthopedics is consulted for the humerus fracture. Today, the patient states that the right shoulder is painful as expected. No new complaints or injuries reported. Review of Systems Constitutional: Denies chills, Denies fatigue, Denies fever Cardiovascular: Denies chest pain, Denies shortness of breath Gastrointestinal: Denies diarrhea, Denies nausea, Denies vomiting Musculoskeletal: right: shoulder pain, shoulder stiffness, shoulder swelling Past Medical History Past Medical History: Atrial Fibrillation, Asthma, Heart Failure, Deep Vein Thrombosis (DVT), Hearing Disorder / Deafness, Hypertension, Myocardial Infarction ([place]), Osteoarthritis (OA), Prostate Disorder Additional Past Medical History / Comment(s): cholecystitis. Aortic regurgi tation, cardiomyopathy, per old medical record stress test showed inferior wall [place], BPH, hypoglycemia, pt states PCP has told him he does not have COPD, arthiritis, chronic low back pain, [place] bilaterally, sinus problems, hayfever. "cervical stenosis", gout lt foot Last Myocardial Infarction Date:: UNKNOWN History of Any Multi-Drug Resistant Organisms: None Reported Past Surgical History: Cholecystectomy, Heart Catheterization, Joint Replacement, Tonsillectomy Additional Past Surgical History / Comment(s): LEFT KNEE-TOTAL, cataract removal bilaterally, colonoscopies-normal, back injections with disc disolvement, BRETT. tooth extraction Past Anesthesia/Blood Transfusion Reactions: No Reported Reaction Past Psychological History: Anxiety, Depression Past Alcohol Use History: Rare Past Drug Use History: None Reported - Past Family History Daughter(s) Family Medical History: Cancer Father Family Medical History: Neurologic Disorder Additional Family Medical History / Comment(s): Father had parkinson's disease. He in his 70's. Mother Family Medical History: Asthma, Myocardial Infarction ([place]), Rheumatoid Arthritis (RA) Additional Family Medical History / Comment(s): Mother of a [place] in her 70's. She also had osteoporosis. Medications and Allergies Home Medications Medication Instructions Recorded Confirmed Type ALPRAZolam [Xanax] 0.25 mg PO TID PRN 04/12/14 06/10/22 History Furosemide [Lasix] 40 mg PO DAILY@89904/12/14 06/10/22 History Montelukast [Singulair] 10 mg PO DAILY@89904/12/14 06/10/22 History Tamsulosin [Flomax] 0.4 mg PO DAILY@89904/12/14 06/10/22 History Spironolactone [Aldactone] 25 mg PO DAILY@89904/24/15 06/10/22 History Acetaminophen [Tylenol] 650 mg PO Q4H PRN 06/10/22 06/10/22 History Amiodarone HCl [Pacerone] 100 mg PO DAILY@89906/10/22 06/10/22 History Apixaban [Eliquis] 2.5 mg PO DAILY@89906/10/22 06/10/22 History Budesonide/Glycopyr/Formoterol 2 puff INHALATION RT-BID@0900,169906/10/22 06/10/22 History [Breztri Aerosphere Inhaler] PRN HYDROcodone/APAP 7.5-325MG [[place] 1 tab PO Q6H PRN 06/10/22 06/10/22 History 7.5-325] Ipratropium-Albuterol Nebulize 3 ml INHALATION RT-QID@09,12,17,06/10/22 06/10/22 History [Duoneb 0.5 mg-3 mg/3 ml Soln] Loratadine [Claritin] 10 mg PO DAILY@89906/10/22 06/10/22 History Metoprolol Tartrate 25 mg PO BID@0900,1700 06/10/22 06/10/22 History Multivitamins, Thera [Multivitamin 1 tab PO DAILY@0906/10/22 06/10/22 History (formulary)] Pantoprazole Sodium [Protonix] 40 mg PO DAILY@0900 06/10/22 06/10/22 History Sennosides/Docusate Sodium [[place] 1 tab PO BID@0900,1700 PRN 06/10/22 06/10/22 History Plus 8.6-50 mg Tablet] fluvoxaMINE MALEATE [Luvox] 100 mg PO DAILY@0900 06/10/22 06/10/22 History tadalafiL [Cialis] 5 mg PO DAILY@0900 06/10/22 06/10/22 History Allergies Allergy/AdvReac Type Severity Reaction Status Date / Time banana Allergy Unknown Verified 06/10/22 20:47 diazepam [From Valium] AdvReac Unknown Verified 06/10/22 20:47 Physical Examination The patient is an 82 y/o male in no acute distress. He is alert and oriented x3. There is bruising to the right episcopal area. Exam of the right upper extremity reveals a dressing to the right elbow. There is pain to palpation to the right proximal humerus. Minimal ecchymosis at this time. Patient has full hand, wrist, and elbow motion without difficulty or pain. Neurovascular status to the right upper extremity is intact. Results X-rays of right shoulder reveal a minimally displaced proximal humerus fracture. No sign of dislocation noted. Fracture alignment is satisfactory. - Labs Labs: Abnormal Lab Results - Last 24 Hours (Table) 06/11/22 06/11/22 Range/Units 04:27 04:27 RBC 3.83 L (4.40-5.60) X 10*6/uL Hgb 11.3 L (13.0-17.0) g/dL Hct 36.1 L (39.6-50.0) % MCHC 31.3 L (32.0-37.0) g/dL RDW 15.1 H (11.5-14.5) % Immature Gran # 0.05 H (0.00-0.04) X 10*3/uL PT 12.4 H (9.9-11.9) sec H & H 06/11/22 Range/Units 04:27 Hgb 11.3 L (13.0-17.0) g/dL Hct 36.1 L (39.6-50.0) % Coagulation 06/11/22 Range/Units 04:27 INR 1.10 (0.90-1.11) Result Diagrams: 06/11/22 04:27 Assessment and Plan (1) Fall Current Visit: Yes Status: Acute Code(s): W19.XXXA - UNSPECIFIED FALL, INITIAL ENCOUNTER SNOMED Code(s): 4391079 (2) Right humeral fracture Current Visit: Yes Status: Acute Code(s): S42.301A - UNSP FRACTURE OF SHAFT OF HUMERUS, RIGHT ARM, INIT SNOMED Code(s): 31474648 Plan: The clinical and x-ray findings were discussed with the patient. No family is at the bedside at this time. No surgical intervention is planned for this fracture. An arm sling is ordered. Nonweightbearing to the right upper extremity. It was discussed with the patient that he will have stiffness in the shoulder and he will not have normal motion to the shoulder after the fracture heals. The patient will follow up in our office on an outpatient basis for fracture folllow up in 2 weeks. PT and OT have been ordered. He will likely need to go to skilled rehab upon discharge from the hospital. We will follow peripherally as he remains in the hospital.
[2022-06-11 09:49] LABS: African American GFR (CKD) 42.9 (60.0-200.0); Albumin 3.2 g/dL (3.8-4.9); Albumin/Globulin Ratio 1.91 (1.60-3.17); Anion Gap 12.8 mmol/L (10.00-18.00); BUN/Creat Ratio 14.46 Ratio (12.00-20.00); Blood Urea Nitrogen 24.3 mg/dL (9.0-27.0); Calcium 8.5 mg/dL (8.7-10.3); Carbon Dioxide 19.9 mmol/L (20.0-27.5); Globulin 1.7 g/dL (1.6-3.3); Potassium 4.1 mmol/L (3.5-5.5); Total Bilirubin 0.9 mg/dL (0.30-1.20); Total Protein 4.8 g/dL (6.2-8.2)
[2022-06-11 12:05] VITALS: BMI 26.2
[2022-06-11] MEDS: HYDROcodone/APAP 10-325MG 1 EACH TAB PO PRN (15:39)
[2022-06-12] MEDS: HYDROcodone/APAP 10-325MG 1 EACH TAB PO PRN ×2 (00:01→16:33)
[2022-06-12] MEDS: HYDROmorphone 1 MG/ML 1 ML SYRINGE IVP PRN ×3 (01:37→14:07)
--- NOTE | 2022-06-12 03:40 | PN ---
PROGRESS NOTE An 82-year-old white male fell on his right arm, has a right humeral fracture for which he got a sling, going to be put on. He is unable to ambulate and get out of the bed by himself. He has had to go back to long-term care at this point. OBJECTIVE: VITAL SIGNS: Stable, afebrile. CARDIOVASCULAR: Irregularly irregular rhythm. PSYCHIATRIC: Poor mood and affect. NEUROLOGIC: Alert and oriented x3. LUNGS: Clear. ASSESSMENT: Right humeral fracture, inoperable sling, gait mobility, generalized weakness, status post coronavirus disease, atrial fibrillation, chronic obstructive pulmonary disease. PROGNOSIS: Extremely guarded. DIAGNOSES: Diastolic heart failure, chronic obstructive pulmonary disease, pulmonary fibrosis. He is on long-term care. He is unable to get out of bed by himself or ambulate, especially now that his arms go into a sling for 2 weeks. Follow up with Orthopedics in a couple of weeks. MMODL / IJN: [id number] /
[2022-06-12] MEDS: MULTIVITAMINS, THERA 1 EACH TAB PO SCH (07:55)
[2022-06-12] MEDS: LORATADINE 10 MG TAB PO SCH (07:55)
[2022-06-12] MEDS: TAMSULOSIN 0.4 MG CAP.ER.24H PO SCH (07:55)
[2022-06-12] MEDS: FUROSEMIDE 40 MG TAB PO SCH (07:55)
[2022-06-12] MEDS: METOPROLOL TARTRATE 25 MG TAB PO SCH ×2 (07:55→16:34)
[2022-06-12] MEDS: PANTOPRAZOLE 40 MG TABLET PO SCH (07:55)
[2022-06-12] MEDS: MONTELUKAST 10 MG TAB PO SCH (07:55)
[2022-06-12] MEDS: SPIRONOLACTONE 25 MG TAB PO SCH (07:55)
[2022-06-12] MEDS: AMIODARONE 100 MG TAB PO SCH (07:56)
[2022-06-12] MEDS: APIXABAN 2.5 MG TABLET PO SCH (07:56)
[2022-06-12] MEDS: NON FORMULARY DRUG (Tadalafil [Cialis] 5 MG Tablet) PO SCH (08:59)
--- NOTE | 2022-06-12 15:11 | CDI ---
Documentation Clarification Form Date: 06/12/2022 From: Ruth Solis RN, CCDS Admit Date: 06/10/2022 7:52:00 PM Patient Name: Lino Steele Visit Number: [id number] Discharge Date: ATTENTION: The Clinical Documentation Specialists (CDI) and [facility] Coding Staff appreciate your assistance in clarifying documentation. Please respond to the clarification below the line at the bottom and electronically sign. The CDI & [facility] Coding staff will review the response and follow-up if needed. Please note: Queries are made part of the Legal Health Record. If you have any questions, please contact the author of this message via ITS. Dr. Saeid Yang Atrial Fibrillation is documented in the H/P and subsequent progress notes. Additional clarification regarding the type of atrial fibrillation is requested. History/Risk Factors: Atrial fibrillation, Asthma, Heart failure, DVT, HTN, Clinical Indicators: 82-year-old male present after fall on the right shoulder. X-ray of right shoulder showed an acute, impacted right humeral head fracture. H/P has history of atrial fibrillation and further clarification is requested. 06/10 EKG/telemetry: Atrial Fibrillation, pulse 76 (scanned report) Treatment: Eliquis 2.5 MG PO Daily @ 0900 Please clarify the type of atrial fibrillation, if known: [ ] Chronic [ ] Permanent [ ] Paroxysmal [ ] Persistent [ ] Other, please specify [ ] Unable to determine (Template Last Revised: September 2020) MTDD
--- NOTE | 2022-06-12 16:06 | P.GSCN ---
History of Present Illness History of present illness: 82-year-old gentleman known to me from the wound clinic this patient has a wound on the right lower extremity we've been treating with local wound care and was skin graft patient had a fall and had a right humerus neck fracture patient is under care of orthopedic Medical history history of 4 atrial fibrillation on Coumadin Neck examination neck is supple no bruit appreciated Chest is clear the good entry both lungs patient has a right humerus neck fracture with a sling Abdomen soft nontender Right leg wound is granulating discharge or redness noted Plan is we will use Aquacel silver which should be changed every 48 hours patient will follow up in the wound clinic Past Medical History Past Medical History: Atrial Fibrillation, Asthma, Heart Failure, Deep Vein Thrombosis (DVT), Hearing Disorder / Deafness, Hypertension, Myocardial Inf arction ([place]), Osteoarthritis (OA), Prostate Disorder Additional Past Medical History / Comment(s): cholecystitis. Aortic regurgitation, cardiomyopathy, per old medical record stress test showed inferior wall [place], BPH, hypoglycemia, pt states PCP has told him he does not have COPD, arthiritis, chronic low back pain, [place] bilaterally, sinus problems, hayfever. "cervical stenosis", gout lt foot Last Myocardial Infarction Date:: UNKNOWN History of Any Multi-Drug Resistant Organisms: None Reported Past Surgical History: Cholecystectomy, Heart Catheterization, Joint Replacement, Tonsillectomy Additional Past Surgical History / Comment(s): LEFT KNEE-TOTAL, cataract removal bilaterally, colonoscopies-normal, back injections with disc disolvement, BRETT. tooth extraction Past Anesthesia/Blood Transfusion Reactions: No Reported Reaction Past Psychological History: Anxiety, Depression Past Alcohol Use History: Rare Past Drug Use History: None Reported - Past Family History Daughter(s) Family Medical History: Cancer Father Family Medical History: Neurologic Disorder Additional Family Medical History / Comment(s): Father had parkinson's disease. He in his 70's. Mother Family Medical History: Asthma, Myocardial Infarction ([place]), Rheumatoid Arthritis (RA) Additional Family Medical History / Comment(s): Mother of a [place] in her 70's. She also had osteoporosis. Medications and Allergies Home Medications Medication Instructions Recorded Confirmed Type Furosemide [Lasix] 40 mg PO DAILY 04/12/14 06/11/22 History Montelukast [Singulair] 10 mg PO DAILY 04/12/14 06/11/22 History Tamsulosin [Flomax] 0.4 mg PO DAILY 04/12/14 06/11/22 History Spironolactone [Aldactone] 25 mg PO DAILY 04/24/15 06/11/22 History Acetaminophen [Tylenol] 650 mg PO Q4H PRN 06/10/22 06/10/22 History Amiodarone HCl [Pacerone] 100 mg PO DAILY 06/10/22 06/11/22 History Apixaban [Eliquis] 2.5 mg PO DAILY 06/10/22 06/11/22 History Budesonide/Glycopyr/Formoterol 2 puff INHALATION RT-BID@0900,1700 06/10/22 06/10/22 History [Breztri Aerosphere Inhaler] HYDROcodone/APAP 7.5-325MG [[place] 1 tab PO Q6H PRN 06/10/22 06/10/22 History 7.5-325] Ipratropium-Albuterol Nebulize 3 ml INHALATION RT-QID 06/10/22 06/11/22 History [Duoneb 0.5 mg-3 mg/3 ml Soln] Loratadine [Claritin] 10 mg PO DAILY@1700 06/10/22 06/11/22 History Metoprolol Tartrate 25 mg PO BID@0900,1700 06/10/22 06/10/22 History Multivitamins, Thera [Multivitamin 1 tab PO DAILY 06/10/22 06/11/22 History (formulary)] Pantoprazole Sodium [Protonix] 40 mg PO DAILY@0600 06/10/22 06/11/22 History Sennosides/Docusate Sodium [Senna 1 tab PO BID 06/10/22 06/11/22 History Plus 8.6-50 mg Tablet] fluvoxaMINE MALEATE [Luvox] 100 mg PO DAILY 06/10/22 06/11/22 History tadalafiL [Cialis] 5 mg PO DAILY 06/10/22 06/11/22 History ALPRAZolam [Xanax] 0.5 mg PO TID PRN 06/11/22 06/11/22 History Acetic Acid [Acetic Acid Otic 6 drops BOTH EARS Q14D 06/11/22 06/11/22 History Solution] Albuterol Nebulized [Ventolin 2.5 mg INHALATION RT-Q6H PRN 06/11/22 06/11/22 History Nebulized] Allergies Allergy/AdvReac Type Severity Reaction Status Date / Time banana Allergy Unknown Verified 06/10/22 20:47 diazepam [From Valium] AdvReac Unknown Verified 06/10/22 20:47 Surgical - Exam Vital Signs Pulse Resp BP Pulse Ox 76 18 124/57 100 06/10/22 16:30 06/10/22 16:30 06/10/22 16:30 06/10/22 16:30 Results - Labs 06/11/22 04:27 06/11/22 04:27 Diabetes panel 06/11/22 Range/Units 04:27 Hemoglobin A1c 5.3 (0.0-6.0) %
[2022-06-12] MEDS: HYDROcodone/APAP 7.5-325MG 1 EACH TAB PO PRN (20:39)
[2022-06-12] MEDS: ALPRAZolam 0.25 MG TAB PO PRN (22:42)
[2022-06-13] MEDS: HYDROcodone/APAP 7.5-325MG 1 EACH TAB PO PRN ×4 (03:21→21:28)
[2022-06-13] MEDS: NON FORMULARY DRUG (Tadalafil [Cialis] 5 MG Tablet) PO SCH (09:13)
[2022-06-13] MEDS: ALPRAZolam 0.25 MG TAB PO PRN ×3 (09:17→21:28)
[2022-06-13] MEDS: TAMSULOSIN 0.4 MG CAP.ER.24H PO SCH (09:18)
[2022-06-13] MEDS: METOPROLOL TARTRATE 25 MG TAB PO SCH ×2 (09:18→17:18)
[2022-06-13] MEDS: APIXABAN 2.5 MG TABLET PO SCH (09:18)
[2022-06-13] MEDS: FUROSEMIDE 40 MG TAB PO SCH (09:18)
[2022-06-13] MEDS: MULTIVITAMINS, THERA 1 EACH TAB PO SCH (09:18)
[2022-06-13] MEDS: LORATADINE 10 MG TAB PO SCH (09:18)
[2022-06-13] MEDS: MONTELUKAST 10 MG TAB PO SCH (09:18)
[2022-06-13] MEDS: AMIODARONE 100 MG TAB PO SCH (09:18)
[2022-06-13] MEDS: SPIRONOLACTONE 25 MG TAB PO SCH (09:18)
[2022-06-13] MEDS: PANTOPRAZOLE 40 MG TABLET PO SCH (09:18)
--- NOTE | 2022-06-13 15:36 | P.CONS ---
History of Present Illness - Chief Complaint Walking difficulty - History of Present Illness I had the opportunity see patient for inpatient rehab consultation today. Patient admitted Dr. Saeid Yang June 10 history of fall at home and right shoulder pain. Patient has history of discharged to [facility] 3 months ago for right leg skin grafting and was just recently discharged to [facility]. Seen by orthopedics who notes x-ray with proximal right humeral fracture. Seen by Dr. Moss as well. Seen by orthopedics and currently treated with slinging. Recommend follow-up in office. Diagnostic tests head CT with cerebral atrophy. C-spine CT with spondylitic change. Chest x-ray of mild cardiomegaly. Right shoulder x-ray impacted right humeral neck fracture. Has started therapy. PT reports two-person total assist for bed mobility and transfer and unable take steps. OT reports total assistance for grooming and two-person total assistance for upper/lower bathing and dressing. Apparently not appropriate for therapy this afternoon per nursing to therapy staff. Previous functional history as elicited from patient: 82-year-old right-handed white male who is lives in one floor home with basement with . generally does the cooking, laundry, driving lately. Patient describes a previously he was independent with driving, standing shower and gait with 4 w heeled walker. PCP is Dr. Saeid Yang. Review of Systems Review of systems: Skin: Multiple tears including left arm and right [place]. ENT: Denies sneezes or discharge. Eyes: Denies discharge or photophobia. Cardiac: Denies chest pain or palpitation. Pulmonary: Denies cough or shortness of breath. Gastrointestinal: Denies nausea, emesis, constipation, diarrhea. Genitourinary: Denies discharge or frequency. Musculoskeletal: Right shoulder discomfort. Neurologic: Denies motor or sensory change. Endocrine: Denies shakes or sweats. Oncology: Denies cancers. Dermatologic: Denies rash, itching, pruritus. ALLERGY/immunology: Denies sneezes, rashes. Past Medical History Past Medical History: Atrial Fibrillation, Asthma, Heart Failure, Deep Vein Thrombosis (DVT), Hearing Disorder / Deafness, Hypertension, Myocardial Infarction ([place]), Osteoarthritis (OA), Prostate Disorder Additional Past Medical History / Comment(s): cholecystitis. Aortic regurgitation, cardiomyopathy, per old medical record stress test showed inferior wall [place], BPH, hypoglycemia, pt states PCP has told him he does not have COPD, arthiritis, chronic low back pain, [place] bilaterally, sinus problems, hayfever. "cervical stenosis", gout lt foot Last Myocardial Infarction Date:: UNKNOWN History of Any Multi-Drug Resistant Organisms: None Reported Past Surgical History: Cholecystectomy, Heart Catheterization, Joint Replacement, Tonsillectomy Additional Past Surgical History / Comment(s): LEFT KNEE-TOTAL, cataract removal bilaterally, colonoscopies-normal, back injections with disc disolvement, BRETT. tooth extraction Past Anesthesia/Blood Transfusion Reactions: No Reported Reaction Past Psychological History: Anxiety, Depression Past Alcohol Use History: Rare Past Drug Use History: None Reported - Past Family History Daughter(s) Family Medical History: Cancer Father Family Medical History: Neurologic Disorder Additional Family Medical History / Comment(s): Father had parkinson's disease. He in his 70's. Mother Family Medical History: Asthma, Myocardial Infarction ([place]), Rheumatoid Arthritis (RA) Additional Family Medical History / Comment(s): Mother of a [place] in her 70's. She also had osteoporosis. Medications and Allergies Home Medications Medication Instructions Recorded Confirmed Type Furosemide [Lasix] 40 mg PO DAILY 04/12/14 06/11/22 History Montelukast [Singulair] 10 mg PO DAILY 04/12/14 06/11/22 History Tamsulosin [Flomax] 0.4 mg PO DAILY 04/12/14 06/11/22 History Spironolactone [Aldactone] 25 mg PO DAILY 04/24/15 06/11/22 History Acetaminophen [Tylenol] 650 mg PO Q4H PRN 06/10/22 06/10/22 History Amiodarone HCl [Pacerone] 100 mg PO DAILY 06/10/22 06/11/22 History Apixaban [Eliquis] 2.5 mg PO DAILY 06/10/22 06/11/22 History Budesonide/Glycopyr/Formoterol 2 puff INHALATION RT-BID@0900,1700 06/10/22 06/10/22 History [Breztri Aerosphere Inhaler] HYDROcodone/APAP 7.5-325MG [[place] 1 tab PO Q6H PRN 06/10/22 06/10/22 History 7.5-325] Ipratropium-Albuterol Nebulize 3 ml INHALATION RT-QID 06/10/22 06/11/22 History [Duoneb 0.5 mg-3 mg/3 ml Soln] Loratadine [Claritin] 10 mg PO DAILY@1700 06/10/22 06/11/22 History Metoprolol Tartrate 25 mg PO BID@0900,1700 06/10/22 06/10/22 History Multivitamins, Thera [Multivitamin 1 tab PO DAILY 06/10/22 06/11/22 History (formulary)] Pantoprazole Sodium [Protonix] 40 mg PO DAILY@0600 06/10/22 06/11/22 History Sennosides/Docusate Sodium [[place] 1 tab PO BID 06/10/22 06/11/22 History Plus 8.6-50 mg Tablet] fluvoxaMINE MALEATE [Luvox] 100 mg PO DAILY 06/10/22 06/11/22 History tadalafiL [Cialis] 5 mg PO DAILY 06/10/22 06/11/22 History ALPRAZolam [Xanax] 0.5 mg PO TID PRN 06/11/22 06/11/22 History Acetic Acid [Acetic Acid Otic 6 drops BOTH EARS Q14D 06/11/22 06/11/22 History Solution] Albuterol Nebulized [Ventolin 2.5 mg INHALATION RT-Q6H PRN 06/11/22 06/11/22 History Nebulized] Allergies Allergy/AdvReac Type Severity Reaction Status Date / Time banana Allergy Unknown Verified 06/10/22 20:47 diazepam [From Valium] AdvReac Unknown Verified 06/10/22 20:47 Physical Exam Vitals: Vital Signs Temp Pulse Resp BP Pulse Ox 06/13/22 14:05 97.9 F 98 17 108/54 92 L 06/13/22 08:56 116 H 06/13/22 07:30 98.4 F 115 H 17 114/59 97 06/13/22 00:51 97.4 F L 88 17 108/60 95 06/12/22 19:20 98.2 F 84 18 104/46 95 Intake and Output 06/13/22 06/13/22 06/13/22 06:59 14:59 22:59 Output Total 350 Balance -350 Output: Urine 350 Other: Voiding Method Incontinent # Bowel Movements 1 Weight 97.976 kg Skin: Atrophic. Curlex left forearm wrist and hand. Gauze pad over right [place]. General: Medium build and comfortable appearance. Head: Normocephalic, atraumatic. Eyes: Symmetric. Pupils equal round. Ears: Symmetric. Hearing within normal limits. Mouth: Clear. Neck: Supple. Carotid without bruit. Cardiac: Regular rate and rhythm. Lungs: Clear anteriorly and posteriorly. Abdomen: Soft active nontender. Extremities: Normal tone. Neurological: Mental status: Alert, cooperative, pleasant. Cranial nerves: Symmetric facial tone and trapezius. Motor: Can elevate left arm off of bed. Both legs less than antigravity and right arm poor secondary discomfort right shoulder/arm. Sensation: Intact throughout. DTRs: Symmetric and equal throughout. Mobility: Requires physical assist for bed mobility. Results CBC & Chem 7: 06/11/22 04:27 06/11/22 04:27 Assessment and Plan (1) Fall Current Visit: Yes Status: Acute Code(s): W19.XXXA - UNSPECIFIED FALL, INITIAL ENCOUNTER SNOMED Code(s): 2474516 (2) Right humeral fracture Current Visit: Yes Status: Acute Code(s): S42.301A - UNSP FRACTURE OF SHAFT OF HUMERUS, RIGHT ARM, INIT SNOMED Code(s): 56350560 (3) Acute deep vein thrombosis (DVT) of proximal vein of left lower extremity Current Visit: No Status: Acute Priority: High Onset Date: 11/13/15 Code(s): I82.4Y2 - AC EMBLSM AND THOMBOS UNSP DEEP VEINS OF LEFT PROX LOW EXTRM SNOMED Code(s): 737029969965 (4) High risk for readmission Current Visit: No Status: Acute Code(s): Z91.89 - OTH PERSONAL RISK FACTORS, NOT ELSEWHERE CLASSIFIED SNOMED Code(s): 421949718 Plan: Comments and plan: At this time patient requires 24/7 care multiple persons. Thus would recommend IDA placement and this in fact may be permanent placement. Note failure to return home successfully after less than 2 days.
--- NOTE | 2022-06-14 01:12 | PN ---
PROGRESS NOTE SUBJECTIVE: He is admitted with right shoulder humerus fracture, AFC home has been planned. He is on his home medications, he is status post COVID. He is on Luvox, Singulair, Tadalafil for pulmonary hypertension, BPH, Aldactone, Flomax, on amiodarone for dizziness and atrial fibrillation. OBJECTIVE: VITAL SIGNS: Blood pressure 113/50, O2 96 on room air, temperature 97.5, pulse 70, and respiratory rate 16-18. CARDIOVASCULAR: S1-S2. LUNGS: Transmitted upper sounds. HEMATOLOGY: Negative for Homans. PSYCH: Fair mood and affect. Status post humeral fracture and COPD, atrial fibrillation, pulmonary fibrosis. PT, OT, possible consult with , await further orders versus long term placement. Difficulty with his ambulation. Prognosis will be guarded down the road. BRYANT / MAXIMILIANN: [id number] /
[2022-06-14] MEDS: ALPRAZolam 0.25 MG TAB PO PRN ×3 (05:54→23:03)
[2022-06-14] MEDS: HYDROcodone/APAP 7.5-325MG 1 EACH TAB PO PRN ×3 (05:54→23:03)
[2022-06-14] MEDS: LORATADINE 10 MG TAB PO SCH (08:05)
[2022-06-14] MEDS: FUROSEMIDE 40 MG TAB PO SCH (08:05)
[2022-06-14] MEDS: TAMSULOSIN 0.4 MG CAP.ER.24H PO SCH (08:05)
[2022-06-14] MEDS: MULTIVITAMINS, THERA 1 EACH TAB PO SCH (08:05)
[2022-06-14] MEDS: SPIRONOLACTONE 25 MG TAB PO SCH (08:05)
[2022-06-14] MEDS: PANTOPRAZOLE 40 MG TABLET PO SCH (08:05)
[2022-06-14] MEDS: AMIODARONE 100 MG TAB PO SCH (08:05)
[2022-06-14] MEDS: METOPROLOL TARTRATE 25 MG TAB PO SCH ×2 (08:05→16:18)
[2022-06-14] MEDS: APIXABAN 2.5 MG TABLET PO SCH (08:05)
[2022-06-14] MEDS: MONTELUKAST 10 MG TAB PO SCH (08:05)
[2022-06-14] MEDS: ACETAMINOPHEN TAB 325 MG TAB PO PRN ×2 (08:21→18:12)
[2022-06-14] MEDS: NON FORMULARY DRUG (Tadalafil [Cialis] 5 MG Tablet) PO SCH (10:18)
[2022-06-15] MEDS: NYSTATIN 100,000 UNIT/GM POWD 15 GM TOPICAL SCH ×3 (01:11→21:37)
[2022-06-15] MEDS: ACETAMINOPHEN TAB 325 MG TAB PO PRN (03:15)
[2022-06-15] MEDS: NON FORMULARY DRUG (Tadalafil [Cialis] 5 MG Tablet) PO SCH (08:59)
[2022-06-15 09:32] LABS: African American GFR (CKD) 49.2 (60.0-200.0); Anion Gap 10.3 mmol/L (10.00-18.00); BUN/Creat Ratio 25.67 Ratio (12.00-20.00); Blood Urea Nitrogen 38.5 mg/dL (9.0-27.0); Calcium 8.3 mg/dL (8.7-10.3); Carbon Dioxide 24.7 mmol/L (20.0-27.5); Magnesium 2.1 mg/dL (1.5-2.4); Non-African American GFR(CKD) 42.4 (60.0-200.0); Potassium 4.2 mmol/L (3.5-5.5)
[2022-06-15] MEDS: TAMSULOSIN 0.4 MG CAP.ER.24H PO SCH (09:43)
[2022-06-15] MEDS: FUROSEMIDE 40 MG TAB PO SCH (09:43)
[2022-06-15] MEDS: LORATADINE 10 MG TAB PO SCH (09:43)
[2022-06-15] MEDS: AMIODARONE 100 MG TAB PO SCH (09:43)
[2022-06-15] MEDS: SPIRONOLACTONE 25 MG TAB PO SCH (09:44)
[2022-06-15] MEDS: HYDROcodone/APAP 7.5-325MG 1 EACH TAB PO PRN ×3 (09:44→21:35)
[2022-06-15] MEDS: METOPROLOL TARTRATE 25 MG TAB PO SCH ×2 (09:45→17:18)
[2022-06-15] MEDS: MONTELUKAST 10 MG TAB PO SCH (09:45)
[2022-06-15] MEDS: ALPRAZolam 0.25 MG TAB PO PRN ×3 (09:45→21:35)
[2022-06-15] MEDS: MULTIVITAMINS, THERA 1 EACH TAB PO SCH (09:46)
[2022-06-15] MEDS: APIXABAN 2.5 MG TABLET PO SCH (09:46)
[2022-06-15] MEDS: PANTOPRAZOLE 40 MG TABLET PO SCH (09:46)
--- NOTE | 2022-06-15 23:17 | PN ---
PROGRESS NOTE DATE OF SERVICE: 06/14/2022 SUBJECTIVE: An 82-year-old white male, status post fall with humeral fracture. His right arm is in a sling. He is more alert. We stopped his Dilaudid due to severe confusion. Discussed the case with both him and his next week. Continue with PT/OT. ASSESSMENT: Status post humeral fracture, chronic obstructive pulmonary disease, atrial fibrillation. PROGNOSIS: Guarded. Continue with PT/OT. Discharge planning for next week. Continue with medications for atrial fibrillation, COPD, recent COVID, hypoxemia, diastolic heart failure. We will do an echo. Prognosis guarded. MMODL / IJN: [id number] /
[2022-06-16] MEDS: HYDROcodone/APAP 7.5-325MG 1 EACH TAB PO PRN ×3 (08:26→21:49)
[2022-06-16] MEDS: LORATADINE 10 MG TAB PO SCH (08:26)
[2022-06-16] MEDS: PANTOPRAZOLE 40 MG TABLET PO SCH (08:26)
[2022-06-16] MEDS: ALPRAZolam 0.25 MG TAB PO PRN ×3 (08:26→21:49)
[2022-06-16] MEDS: AMIODARONE 100 MG TAB PO SCH (08:26)
[2022-06-16] MEDS: TAMSULOSIN 0.4 MG CAP.ER.24H PO SCH (08:27)
[2022-06-16] MEDS: APIXABAN 2.5 MG TABLET PO SCH (08:27)
[2022-06-16] MEDS: NON FORMULARY DRUG (Tadalafil [Cialis] 5 MG Tablet) PO SCH (08:27)
[2022-06-16] MEDS: METOPROLOL TARTRATE 25 MG TAB PO SCH ×2 (08:27→16:43)
[2022-06-16] MEDS: SPIRONOLACTONE 25 MG TAB PO SCH (08:27)
[2022-06-16] MEDS: FUROSEMIDE 40 MG TAB PO SCH (08:27)
[2022-06-16] MEDS: MONTELUKAST 10 MG TAB PO SCH (08:27)
[2022-06-16] MEDS: MULTIVITAMINS, THERA 1 EACH TAB PO SCH (08:27)
[2022-06-16] MEDS: NYSTATIN 100,000 UNIT/GM POWD 15 GM TOPICAL SCH ×2 (08:32→21:51)
--- NOTE | 2022-06-16 23:26 | P.PN ---
Subjective Progress Note Date: 06/16/22 Patient is a 82-year-old male with a past medical history of atrial fibrillation, cardiomyopathy, hypertension, hearing is also deafness who was recently discharged from a inpatient rehab hospital approximately 3 months. Patient was at rehab due to debility and history of right lower extremity injury and skin grafting.. Patient stated that he was at home and was getting up from the recliner shoulder sling and follow-up in office. His cane when he fell on his right shoulder. Patient was found to have right femoral neck fracture. Seen by orthopedic surgery and recommends continue with shoulder sling and follow-up in the office. 06/16/2022 Patient is currently resting in bed. Awake alert and oriented x3. Mentation is improved after stopping IV Dilaudid. Planes of chest pain. No complaints of abdominal pain. No diarrhea. Colostomy bag in place. Right shoulder pain is better controlled. No fever no chills. No cough or sputum production. Tolerating oral diet with one-to-one feeding. Laboratory data showed sodium 143 potassium 4.2 chloride 108 bicarb is 24.7 BUN 38.5 and creatinine 1.5 Prior to left knee dressing change was done by vascular surgery. PT OT is on board and possible rehab transfer sometime this week. Current medications reviewed. Objective - Vital Signs Vital signs: Vital Signs Temp 97.8 F 06/16/22 13:37 Pulse 82 06/16/22 13:37 Resp 17 06/16/22 13:37 BP 107/57 06/16/22 13:37 Pulse Ox 98 06/16/22 13:37 FiO2 Intake & Output 06/15/22 06/16/22 06/16/22 18:59 06:59 18:59 Intake Total 240 Output Total 1150 400 550 Balance -1150 -400 -310 Intake: Oral 240 Output: Urine 1150 400 550 Other: Voiding Method Urinal Diaper # Bowel Movements 1 - Exam PHYSICAL EXAMINATION: Patient is lying in the bed comfortably, no acute distress, awake alert and oriented.. HEENT: Normocephalic. Neck is supple. Pupils reactive. Nostrils clear. Oral cavity is moist. Neck reveals no JVD, carotid bruits, or thyromegaly. CHEST EXAMINATION: Trachea is central. Symmetrical expansion. Lung gupta clear to auscultation and percussion. CARDIAC: Normal S1, S2 with no gallops. No murmurs ABDOMEN: Soft. Bowel sounds present. Nontender. No organomegaly. No abdominal bruits. Colostomy bag in place. Extremities: reveal no edema. No clubbing or cyanosis Neurologically awake, alert, oriented x3 with well-coordinated movements. No focal deficits noted Skin: No rash or skin lesions. Right lower extremity skin wound is dressed with. No purulent discharge noted. Psychiatric: Coperative. Nonsuicidal, Musculoskeletal: Right shoulder sling in place. Decreased range of motion. No other joint swelling or deformity. - Labs CBC & Chem 7: 06/11/22 04:27 06/15/22 04:21 Assessment and Plan Assessment: Status post mechanical fall and acute impacted humeral neck fracture. COPD not in exacerbation Paroxysmal atrial fibrillation on anticoagulation with Eliquis Chronic CHF systolic dysfunction EF 30 to 35% as per previous echocardiogram Cardiomyopathy Osteoarthritis History of VT Hypertension Anxiety/depression DVT prophylaxis patient is already on full anticoagulation plan: Patient will be counseled on pain management, bowel regimen and Encourage incentive spirometry. Continue with anticoagulation with Eliquis and continue with cardiac medications. Orthopedic surgery recommends continue with sling and follow-up in the office in the next 2 weeks. Continue with right leg wound dressing and wound care. PT OT is on board and possible discharge to rehab. Time with Patient: Greater than 30
[2022-06-17] MEDS: HYDROcodone/APAP 7.5-325MG 1 EACH TAB PO PRN (02:29)
[2022-06-17] MEDS: HYDROcodone/APAP 10-325MG 1 EACH TAB PO PRN ×3 (06:37→21:57)
[2022-06-17] MEDS: PANTOPRAZOLE 40 MG TABLET PO SCH (07:54)
[2022-06-17] MEDS: SPIRONOLACTONE 25 MG TAB PO SCH (07:54)
[2022-06-17] MEDS: TAMSULOSIN 0.4 MG CAP.ER.24H PO SCH (07:54)
[2022-06-17] MEDS: ALPRAZolam 0.25 MG TAB PO PRN ×2 (07:54→21:58)
[2022-06-17] MEDS: FUROSEMIDE 40 MG TAB PO SCH (07:54)
[2022-06-17] MEDS: MONTELUKAST 10 MG TAB PO SCH (07:54)
[2022-06-17] MEDS: MULTIVITAMINS, THERA 1 EACH TAB PO SCH (07:54)
[2022-06-17] MEDS: APIXABAN 2.5 MG TABLET PO SCH (07:54)
[2022-06-17] MEDS: LORATADINE 10 MG TAB PO SCH (07:55)
[2022-06-17] MEDS: METOPROLOL TARTRATE 25 MG TAB PO SCH ×2 (07:55→17:18)
[2022-06-17] MEDS: AMIODARONE 100 MG TAB PO SCH (07:55)
[2022-06-17] MEDS: NON FORMULARY DRUG (Tadalafil [Cialis] 5 MG Tablet) PO SCH (07:56)
[2022-06-17] MEDS: NYSTATIN 100,000 UNIT/GM POWD 15 GM TOPICAL SCH ×2 (07:56→21:57)
--- NOTE | 2022-06-17 07:57 | PN ---
PROGRESS NOTE Chronic atrial fibrillation. DICTATION ENDS HERE. MMODL / IJN: [id number] /
[2022-06-17 08:53] LABS: Basophils # (A) 0.04 X 10*3/uL (0.00-0.10); Basophils % (A) 0.5 %; Eosinophils # (A) 0.33 X 10*3/uL (0.04-0.35); Eosinophils % (A) 4.3 %; HCT 31.8 % (39.6-50.0); Immature Grans, Automated 0.7 %; Lymphocytes # (A) 2.16 X 10*3/uL (0.90-5.00); Lymphocytes % (A) 28.1 %; MCH 28.6 pg (27.0-32.0); MCHC 31.4 g/dL (32.0-37.0); MCV 90.9 fL (80.0-97.0); Mean Platelet Volume 9.6 fL (9.5-12.2); Monocytes # (A) 0.56 X 10*3/uL (0.20-1.00); Monocytes % (A) 7.3 %; NRBC Per 100 WBC 0 /100 WBCS (0.0-0.0); Neutrophils # (A) 4.55 X 10*3/uL (1.80-7.70); Neutrophils % (A) 59.1 %; Platelet Count 252 X 10*3/uL (140-440); RDW 14.9 % (11.5-14.5); WBC 7.69 X 10*3/uL (4.50-10.00)
[2022-06-17 09:04] LABS: African American GFR (CKD) 52.1 (60.0-200.0); Anion Gap 9.3 mmol/L (10.00-18.00); BUN/Creat Ratio 25.59 Ratio (12.00-20.00); Blood Urea Nitrogen 36.6 mg/dL (9.0-27.0); Calcium 8.5 mg/dL (8.7-10.3); Carbon Dioxide 26.6 mmol/L (20.0-27.5); Potassium 4.4 mmol/L (3.5-5.5)
--- NOTE | 2022-06-17 11:00 | CA ---
Transthoracic Echo Report Name: Lino Steele Age: 82 Gender: M : 1940 Exam Date: 06/17/2022 08:15 Exam Location: [place] [facility] Ht (in): 74 Wt (lb): 216 Ordering Physician: Saeid Yang MD Attending/Referring Phys: Direct Support Professional Paty Oconnell RDCS Procedure CPT: Indications: dyspnea Cardiac Hx: pt supine during exam Technical Quality: Technically difficult study Contrast 1: Total Dose (mL): Contrast 2: Total Dose (mL): MEASUREMENTS (Male / Female) Normal Values 2D ECHO LV Diastolic Volume MOD 4C 179.3 cm??? LV Systolic Volume MOD 4C 120.9 cm??? LV Ejection Fraction MOD 4C 32.6 % LV Diastolic Length 4C 9.2 cm LV Systolic Length 4C 8.8 cm M-MODE Aortic Root Diameter MM 3.8 cm LA Systolic Diameter MM 5.8 cm LA Ao Ratio MM 1.5 AV Cusp Separation MM 2.0 cm DOPPLER AV Peak Velocity 206.8 cm/s AV Peak Gradient 17.1 mmHg AI Peak Velocity 464.3 cm/s AI Peak Gradient 86.2 mmHg AI Pressure Half Time 444.0 ms TR Peak Velocity 206.8 cm/s TR Peak Gradient 17.1 mmHg PV Peak Velocity 111.5 cm/s PV Peak Gradient 5.0 mmHg FINDINGS Left Ventricle Left ventricular ejection fraction is estimated at 30-35 %. Left ventricular dilatation. Right Ventricle Normal right ventricular size. Reduced right ventricular global systolic function. Right Atrium Normal right atrial size. Left Atrium Moderate left atrial dilatation. Mitral Valve Mitral valve thickened. Mild mitral regurgitation. Aortic Valve Trileaflet aortic valve. Thickened aortic valve without stenosis. Moderate aortic regurgitation. Tricuspid Valve Structurally normal tricuspid valve. Mild tricuspid regurgitation. Pulmonic Valve Moderate pulmonic regurgitation. Pericardium No pericardial or pleural effusion. Aorta Aortic root and proximal ascending aorta not well visualized. CONCLUSIONS Moderate to severe LV systolic dysfunction with a dilated left ventricle and diffuse global hypokinesis with an ejection fraction of 30-35% Left atrium is dilated Moderate aortic regurgitation Mild mitral and tricuspid regurgitation Previewed by: Dr. Carlito Smith MD (Electronically Signed) Final Date: 17 June 2022 10:59
--- NOTE | 2022-06-17 14:17 | CT ---
EXAMINATION TYPE: CT chest wo con CT DLP: 747.3 mGycm, Automated exposure control for dose reduction was used. DATE OF EXAM: 06/17/2022 1:56 PM COMPARISON: CT chest 06/29/2013. CLINICAL INDICATION:Male, 82 years old with history of copd; TECHNIQUE: Multiple axial images were obtained through the chest without IV contrast. Lack of IV or o ral contrast limits evaluation of solid and hollow organ viscera. FINDINGS: LUNGS/ PLEURA: Trace bilateral pleural effusions with associated atelectasis. Mild emphysematous carlos nges. No pneumothorax or focal consolidation. No suspicious pulmonary nodules or masses. AIRWAY: Patent and unremarkable.. HEART: The heart is mildly increased in size.. No pericardial effusion. Dense three-vessel coronary a rterial calcifications.. MEDIASTINUM: No gross evidence of adenopathy. VASCULATURE: Ascending thoracic aortic aneurysm measuring up to 4.5 cm. MUSCULOSKELETAL: Redemonstration of acute/subacute impacted right humeral neck fracture with surround ing soft tissue edema and joint effusion. Mild multilevel degenerative disc disease. SOFT TISSUES/LYMPH NODES: Unremarkable. LOWER NECK: 1.6 cm hypodense left thyroid lobe nodule.. UPPER ABDOMEN: Atrophy of both kidneys with left renal cysts measuring up to 4.0 cm. IMPRESSION: 1. Trace bilateral pleural effusions with associated atelectasis. 2. Mild COPD changes. 3. Ascending thoracic aortic aneurysm measuring up to 4.5 cm. 4. Redemonstration of acute/subacute impacted right humeral neck fracture. 5. 1.6 cm hypodense left thyroid lobe nodule. Consider further evaluation with thyroid ultrasound.
--- NOTE | 2022-06-18 02:00 | PN ---
PROGRESS NOTE SUBJECTIVE: An 82-year-old white male with fall, right humeral fracture, history of atrial fibrillation, COPD. Did get a CAT scan of his chest. Echo was done today. To be stabilized for discharge to by his group home I believe on discharge. Continue with PT, OT in the hospital. OBJECTIVE: CARDIOVASCULAR: S1, S2, irregularly irregular rhythm. LUNGS: Clear. GI: Soft. MUSCULOSKELETAL: Right arm in a sling. PSYCH: He is less confused. Giving appropriate answers. PLAN: Continue PT, OT, get him to manage by group home in the near future, continue current medications. Wait for echo and CT of the chest. Prognosis guarded. MMODL / IJN: [id number] /
[2022-06-18] MEDS: HYDROcodone/APAP 7.5-325MG 1 EACH TAB PO PRN ×2 (07:19→16:22)
[2022-06-18] MEDS: APIXABAN 2.5 MG TABLET PO SCH (07:20)
[2022-06-18] MEDS: PANTOPRAZOLE 40 MG TABLET PO SCH (07:20)
[2022-06-18] MEDS: LORATADINE 10 MG TAB PO SCH (07:20)
[2022-06-18] MEDS: TAMSULOSIN 0.4 MG CAP.ER.24H PO SCH (07:20)
[2022-06-18] MEDS: MONTELUKAST 10 MG TAB PO SCH (07:20)
[2022-06-18] MEDS: SPIRONOLACTONE 25 MG TAB PO SCH (07:21)
[2022-06-18] MEDS: AMIODARONE 100 MG TAB PO SCH (07:21)
[2022-06-18] MEDS: METOPROLOL TARTRATE 25 MG TAB PO SCH ×2 (07:21→16:22)
[2022-06-18] MEDS: FUROSEMIDE 40 MG TAB PO SCH (07:21)
[2022-06-18] MEDS: MULTIVITAMINS, THERA 1 EACH TAB PO SCH (07:21)
[2022-06-18] MEDS: ALPRAZolam 0.25 MG TAB PO PRN ×2 (07:21→16:22)
[2022-06-18] MEDS: NON FORMULARY DRUG (Tadalafil [Cialis] 5 MG Tablet) PO SCH (07:23)
[2022-06-18] MEDS: NYSTATIN 100,000 UNIT/GM POWD 15 GM TOPICAL SCH ×2 (07:23→21:40)
[2022-06-18] MEDS: SACUBITRIL/VALSARTAN 24 MG-26 MG TABLET PO SCH (22:33)
[2022-06-18] MEDS: HYDROcodone/APAP 10-325MG 1 EACH TAB PO PRN (23:55)
--- NOTE | 2022-06-19 04:37 | PN ---
PROGRESS NOTE SUBJECTIVE: An 82-year-old white male. Reviewed CT scan and his echo shows 30% to 35% ejection fraction. Moderate aortic regurgitation. Some mitral regurgitation. Subacute impacted right humeral neck fracture 1.6 cm, left lobe nodule of the thyroid. The patient is going to go to [facility] tomorrow. PT/OT is working with him to ambulate. OBJECTIVE: CARDIOVASCULAR: S1, S2. LUNGS: Clear. GI: Soft. HEMATOLOGY: Negative Homans. PSYCH: Fair mood and affect. EXTREMITIES: 2+ edema in the lower extremities. Right arm in a sling. ASSESSMENT: Impacted right humeral fracture, oxygen-dependant chronic obstructive pulmonary disease, atrial fibrillation, coronary artery disease, systolic congestive heart failure. Continue with 2 L oxygen at home. Prognosis guarded. Follow up as an outpatient. Please see further orders. MMODL / IJN: [id number] /
[2022-06-19] MEDS: SYMBICORT 160-4.5 MCG INHALER INHALATION SCH ×2 (08:51→20:52)
[2022-06-19] MEDS: MONTELUKAST 10 MG TAB PO SCH (08:55)
[2022-06-19] MEDS: APIXABAN 2.5 MG TABLET PO SCH (08:55)
[2022-06-19] MEDS: SPIRONOLACTONE 25 MG TAB PO SCH (08:56)
[2022-06-19] MEDS: LORATADINE 10 MG TAB PO SCH (08:56)
[2022-06-19] MEDS: METOPROLOL TARTRATE 25 MG TAB PO SCH ×2 (08:56→17:34)
[2022-06-19] MEDS: FUROSEMIDE 40 MG TAB PO SCH (08:56)
[2022-06-19] MEDS: TAMSULOSIN 0.4 MG CAP.ER.24H PO SCH (08:56)
[2022-06-19] MEDS: SACUBITRIL/VALSARTAN 24 MG-26 MG TABLET PO SCH ×2 (08:57→20:58)
[2022-06-19] MEDS: MULTIVITAMINS, THERA 1 EACH TAB PO SCH (08:57)
[2022-06-19] MEDS: HYDROcodone/APAP 10-325MG 1 EACH TAB PO PRN ×2 (09:00→18:34)
[2022-06-19] MEDS: NYSTATIN 100,000 UNIT/GM POWD 15 GM TOPICAL SCH (09:10)
[2022-06-19] MEDS: NON FORMULARY DRUG (Tadalafil [Cialis] 5 MG Tablet) PO SCH (09:17)
[2022-06-19] MEDS: PANTOPRAZOLE 40 MG TABLET PO SCH (09:18)
[2022-06-19] MEDS: ACETAMINOPHEN TAB 325 MG TAB PO PRN (20:57)
[2022-06-19] MEDS: ALPRAZolam 0.25 MG TAB PO PRN (20:58)
[2022-06-20] MEDS: HYDROcodone/APAP 10-325MG 1 EACH TAB PO PRN ×3 (01:32→11:02)
--- NOTE | 2022-06-20 02:22 | PN ---
PROGRESS NOTE SUBJECTIVE: Lino Steele can be discharged home tomorrow. Right arm remains in a sling. Cardiac medicines were readjusted. CAT scan and echo were reviewed with the patient. OBJECTIVE: HEMATOLOGY: Negative for Homans. PSYCH: Fair mood and affect. EXTREMITIES: 2+ edema. GI: Soft. CARDIOVASCULAR: Irregularly irregular rhythm. ASSESSMENT: Chronic obstructive pulmonary disease, atrial fibrillation, humeral fracture, status post COVID, acute hypoxemic respiratory distress, history of atrial fibrillation. Prognosis guarded. Home medications have been reordered and discussed with the patient. Follow up in 2 weeks. MMODL / IJN: [id number] /
[2022-06-20] MEDS: NYSTATIN 100,000 UNIT/GM POWD 15 GM TOPICAL SCH ×2 (05:12→10:18)
[2022-06-20] MEDS: SYMBICORT 160-4.5 MCG INHALER INHALATION SCH (07:22)
[2022-06-20] MEDS: NON FORMULARY DRUG (Tadalafil [Cialis] 5 MG Tablet) PO SCH (07:38)
[2022-06-20] MEDS: FUROSEMIDE 40 MG TAB PO SCH (07:39)
[2022-06-20] MEDS: SPIRONOLACTONE 25 MG TAB PO SCH (07:39)
[2022-06-20] MEDS: TAMSULOSIN 0.4 MG CAP.ER.24H PO SCH (07:47)
[2022-06-20] MEDS: PANTOPRAZOLE 40 MG TABLET PO SCH (07:47)
[2022-06-20] MEDS: APIXABAN 2.5 MG TABLET PO SCH (07:47)
[2022-06-20] MEDS: SACUBITRIL/VALSARTAN 24 MG-26 MG TABLET PO SCH (07:48)
[2022-06-20] MEDS: METOPROLOL TARTRATE 25 MG TAB PO SCH (07:48)
[2022-06-20] MEDS: MULTIVITAMINS, THERA 1 EACH TAB PO SCH (07:48)
[2022-06-20] MEDS: LORATADINE 10 MG TAB PO SCH (07:48)
[2022-06-20] MEDS: MONTELUKAST 10 MG TAB PO SCH (07:48)
[2022-06-20 09:48] VITALS: BP 106/63; PULSE 61; RESP 18; TEMP 98.3
--- NOTE | 2022-06-20 12:55 | CDI ---
Documentation Clarification Form Date: 06/20/2022 12:49:29 PM From: Ruth Solis RN, CCDS Admit Date: 06/10/2022 7:52:00 PM Patient Name: Lino Steele Visit Number: [id number] Discharge Date: ATTENTION: The Clinical Documentation Specialists (CDI) and [facility] Coding Staff appreciate your assistance in clarifying documentation. Please respond to the clarification below the line at the bottom and electronically sign. The CDI & [facility] Coding staff will review the response and follow-up if needed. Please note: Queries are made part of the Legal Health Record. If you have any questions, please contact the author of this message via ITS. Dr. Saeid Yang Your patient has [insert documentation of symptoms or findings, with date, location]. Based on this information and the findings below, is there an additional diagnosis that is clinically appropriate for this patient? History/Risk Factors: Atrial fibrillation, Asthma, Heart failure, DVT, HTN, COPD, Cardiomyopathy, Covid-19 Tobacco use: not note Home oxygen: 06/10/ Vital sign: 124/56 76 18 100 % 2/L NC 06/11 Vital sign 156/82 84 18 99.6 91 % RA Clinical Indicators: 82-year-old male present after a fall with fracture in his right arm. 06/18 attending progress note:, oxygen-dependent COPD. Continue with 2L oxygen at home. 06/19 attending progress note: ac hypoxic respiratory distress. 06/10 CXR: Mild cardiomegaly. No acute lung disease Heart appears increased compared to old exam. 06/17 CT chest: Trace bilateral pleural effusion with associated atelectasis. Mild COPD changes. Ascending thoracic aortic aneurysm measuring up to 4.5 cm. 06/10 Lung/Breathing assessment: Normal lung sounds bilaterally. Treatment: Singular 10 mg daily Symbicort 160-4.5 Mcg 2 puff Inhalation Monitor pulse ox (titrate) Is there an additional diagnosis that is clinically appropriate for this patient? [ ] Chronic Hypoxic Respiratory Failure [ ] Other Diagnosis, please specify [ ] Unable to determine (Template Last Revised: July 2020) MTDD
--- NOTE | 2022-06-21 13:13 | PN ---
PROGRESS NOTE ADDENDUM: Chronic hypoxemic respiratory failure. MMODL / IJN: [id number] /
== END 2022-06-20 15:49 | DRG 563 ==
LOC: EC 15:02 → 4SSUR 19:52
PROVIDERS: ADMIT Family Medicine; ATTEND Family Medicine
DX: S42.211A Unspecified displaced fracture of surgical neck of right humerus, initial encounter for closed fracture (principal); I42.9 Cardiomyopathy, unspecified; I48.20 Chronic atrial fibrillation, unspecified; I50.42 Chronic combined systolic (congestive) and diastolic (congestive) heart failure; I82.4Y2 Acute embolism and thrombosis of unspecified deep veins of left proximal lower extremity; J96.11 Chronic respiratory failure with hypoxia; W18.30XA Fall on same level, unspecified, initial encounter; Z91.81 History of falling; Y92.009 Unspecified place in unspecified non-institutional (private) residence as the place of occurrence of the external cause; F41.9 Anxiety disorder, unspecified; H91.90 Unspecified hearing loss, unspecified ear; I08.0 Rheumatic disorders of both mitral and aortic valves; I11.0 Hypertensive heart disease with heart failure; I25.10 Atherosclerotic heart disease of native coronary artery without angina pectoris; I25.2 Old myocardial infarction; I27.20 Pulmonary hypertension, unspecified; J44.9 Chronic obstructive pulmonary disease, unspecified; E04.1 Nontoxic single thyroid nodule; F32.A Depression, unspecified; J84.10 Pulmonary fibrosis, unspecified; M19.90 Unspecified osteoarthritis, unspecified site; N40.0 Benign prostatic hyperplasia without lower urinary tract symptoms; R29.6 Repeated falls; M48.02 Spinal stenosis, cervical region; Z79.01 Long term (current) use of anticoagulants; Z79.899 Other long term (current) drug therapy; Z82.49 Family history of ischemic heart disease and other diseases of the circulatory system; Z82.5 Family history of asthma and other chronic lower respiratory diseases; Z86.16 Personal history of COVID-19; Z99.81 Dependence on supplemental oxygen; Z93.3 Colostomy status; Z20.822 Contact with and (suspected) exposure to COVID-19; Z28.21 Immunization not carried out because of patient refusal; Z71.3 Dietary counseling and surveillance; Z88.8 Allergy status to other drugs, medicaments and biological substances
CPT/HCPCS: 70450; 71045; 71250; 72125; 80048; 80053; 83036; 83735; 85025; 85610; 87635; 93306; 94640